=== PATIENT | male | born 1990 | race Caucasian/White ===

== ENCOUNTER 2020-03-19 23:27 | Emergency (ER) | payer SELFPAY ==
[2020-03-19 23:30] VITALS: BP 135/87; PULSE 102; RESP 20; TEMP 37.4; O2SAT 98; BMI 42.7
--- NOTE | 2020-03-19 23:31 | ECG_ITS ---
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 Measurements Intervals [place] Rate: 103 P: 46 HI: 133 QRS: 90 QRSD: 101 T: 55 QT: 331 QTc: 435 Interpretive Statements SINUS TACHYCARDIA ABNORMAL RHYTHM ECG Compared to ECG 03/09/2019 13:18:21 Sinus rhythm no longer present Incomplete right bundle-branch block no longer present Electronically Signed On 03-20-2020 19:58:51 CDT by Zenon Rodriguez M.D. [email or web address]
--- NOTE | 2020-03-19 23:31 | XRR_ITS ---
PROCEDURE INFORMATION: Exam: XR Chest, 1 View Exam date and time: 03/19/2020 11:39 PM Age: 29 years old Clinical indication: Fever and other: Chest pain; Patient HX: C/O cough/fever x 3 days; Additional info: Cp TECHNIQUE: Imaging protocol: XR of the chest Views: Frontal portable upright view of the chest. COMPARISON: CR Chest 2 views* [id number] 03/09/2019 12:51 AM FINDINGS: Lungs: The lungs are clear bilaterally. The pulmonary vasculature is normal. Pleural space: No pleural effusion. No pneumothorax. Heart/Mediastinum: The heart is normal in size and contour. Mediastinum: Stable. Bones/joints: Stable. XR/XR chest 1V portable [id number] IMPRESSION: No acute cardiopulmonary abnormality identified.
[2020-03-19 23:44] VITALS: BP 135/87; PULSE 101; RESP 18; O2SAT 99
[2020-03-19 23:46] LABS: Basophils % 0.7 %; Eosinophils # 0.8 10^3/uL (0.0-0.8); Eosinophils % 13.9 %; Hematocrit 44.7 % (42.0-52.0); Hemoglobin 14.9 g/dL (11.7-16.6); Lymphocytes # 0.6 10^3/uL (0.8-4.8); Lymphocytes % 9.9 %; Mean Corpuscular HGB Conc 33.3 g/dL (30.0-36.0); Mean Corpuscular Hemoglobin 30.2 pg (28.0-34.0); Mean Corpuscular Volume 90.5 fL (80-94); Mean Platelet Volume 9.6 fL (7.4-10.4); Monocytes # 0.4 10^3/uL (0.2-0.9); Monocytes % 6.9 %; Neutrophils # 3.8 10^3/uL (1.8-7.7); Neutrophils % 68.4 %; Nucleated Red Blood Cells % 0 %; Platelet Count 172 10^3/cmm (130-400); Red Blood Count 4.94 10^6/uL (4.1-5.3); Red Cell Distribution Width 11.6 % (12.1-15.1); White Blood Count 5.5 10^3/uL (4.0-10.0)
--- NOTE | 2020-03-19 23:50 | ED_ITS ---
Documented by User: CARMEN Osorio 03/19/20 23:52 HPI - Chest Pain General: Chief Complaint: Chest Pain Stated Complaint: CHEST PAIN Time Seen by Provider: 03/19/20 23:31 History of Present Illness: HPI narrative: Patient arrives via ambulance with complaint of chest pain cough had a fever he said last couple 3 days off and on. Is anxious. Does he is got heartburn MD complaint: chest discomfort Onset (ago): day(s) Timing of current episode: episodic Prior episodes: No Onset: after eating Pain location: substernal Quality: burning Associated symptoms: Reports fever(s); Deny abdominal pain, dyspnea, nausea or vomiting Review of Systems Const: Reports: fever(s) Eyes: Denies: change in vision or blurry vision ENMT: Denies: throat pain or nasal congestion Card: Reports: chest pain; Denies: dyspnea on exertion Resp: Reports: non-productive cough; Denies: dyspnea or productive cough GI: Reports: heartburn; Denies: abdominal pain, nausea or vomiting : Denies: difficulty urinating Musc: Denies: extremity pain Skin/Breast: Denies: rash Neuro: Denies: headache(s) Psych: Denies: anxiety or depression Dusty/Lymph: Denies: easy bruising Physical Exam Const: COMMON NORMALS: no acute distress, average body habitus and patient oriented x3 HENMT: COMMON NORMALS: normocephalic HEAD & SCALP: normal to inspection and normocephalic FACE & SINUS: normal facial exam Eye: COMMON NORMALS: conjunctivae normal GENERAL EYE: appearance normal, both eyes and all related structures CONJUNCTIVA: Yes conjunctivae normal Neck/C-Spine: COMMON NORMALS: no JVD Chest: COMMONS NORMALS: normal inspection of the chest Resp: COMMON NORMALS: normal respiratory effort and clear to auscultation bilaterally AUSCULTATION: clear to auscultation bilaterally Cardio: COMMON NORMALS: no JVD, regular rate and regular rhythm RATE: regular rate RHYTHM: regular rhythm GI: COMMON NORMALS: Normal to inspection, nondistended, normoactive bowel sounds present Extremity: COMMON NORMALS: normal to inspection and full ROM Neuro: COMMON NORMALS: patient oriented x3 Skin: NARRATIVE SKIN EXAM: Diaphoretic Course Vital Signs: Vital signs: Vital Signs Temperature 99.4 F 03/19/20 23:30 Pulse Rate 83 07/05/20 03:46 Respiratory Rate 18 03/20/20 03:46 Blood Pressure 128/66 03/20/20 03:46 Pulse Oximetry 96 03/20/20 03:46 MDM - Chest Pain Lab Data: Labs: Lab Results 03/19/20 03/19/20 03/19/20 Range/Units 23:40 23:40 23:40 WBC 5.5 (4.0-10.0) 10^3/ uL RBC 4.94 (4.1-5.3) 10^6/u L Hgb 14.9 (11.7-16.6) g/dL Hct 44.7 (42.0-52.0) % MCV 90.5 (80-94) fL MCH 30.2 (28.0-34.0) pg MCHC 33.3 (30.0-36.0) g/dL RDW 11.6 L (12.1-15.1) % Plt Count 172 (130-400) 10^3/c mm MPV 9.6 (7.4-10.4) fL Neut % (Auto) 68.4 % Lymph % (Auto) 9.9 % [place] % (Auto) 6.9 % Eos % (Auto) 13.9 % Baso % (Auto) 0.7 % Neut # (Auto) 3.8 (1.8-7.7) 10^3/u L Lymph # (Auto) 0.6 L (0.8-4.8) 10^3/u L [place] # (Auto) 0.4 (0.2-0.9) 10^3/u L Eos # (Auto) 0.8 (0.0-0.8) 10^3/u L Baso # (Auto) 0.0 (0.0-0.1) 10^3/u L Nucleated RBC % (a uto) 0 % Nucleated RBCs # 0.0 /100WBC D-Dimer 3.01 H (0-0.59) ug/mIFE U Sodium 136 (136-145) mmol/L Potassium 3.7 (3.5-5.1) mmol/L Chloride 100 (98-107) mmol/L Carbon Dioxide 23 (22-29) mmol/L Anion Gap 16.7 (5-19) BUN 11 (6-20) mg/dL Creatinine 1.1 (0.7-1.2) mg/dL GFR Calculation 78.6 L (90-130) mL/min Glucose 201 H (65-115) mg/dL Calculated Osmolal ity 284 L (285-295) mOsm/k g Calcium 9.3 (8.5-10.5) mg/dL Total Bilirubin 0.9 (0.15-1.2) mg/dL AST 527 H (0-40) U/L ALT 669 H (0-41) U/L Alkaline Phosphata se 83 (40-130) IU/L Troponin T Baselin e (0-15) ng/L Troponin T 120 Min [place] (0-15) ng/L Delta Troponin T (0-10) ABS# Total Protein 7.0 (6.6-8.7) g/dL Albumin 3.7 (3.5-5.2) g/dL Globulin 3.3 (1.3-4.6) g/dL Hepatitis A IgM Ab (Nonreactive) Hep Bs Antigen (Nonreactive) Hep B Core IgM Ab (Nonreactive) Hepatitis C Antibo dy (Nonreactive) 03/19/20 03/19/20 03/20/20 Range/Units 23:40 23:40 02:12 WBC (4.0-10.0) 10^3/ uL RBC (4.1-5.3) 10^6/u L Hgb (11.7-16.6) g/dL Hct (42.0-52.0) % MCV (80-94) fL MCH (28.0-34.0) pg MCHC (30.0-36.0) g/dL RDW (12.1-15.1) % Plt Count (130-400) 10^3/c mm MPV (7.4-10.4) fL Neut % (Auto) % Lymph % (Auto) % [place] % (Auto) % Eos % (Auto) % Baso % (Auto) % Neut # (Auto) (1.8-7.7) 10^3/u L Lymph # (Auto) (0.8-4.8) 10^3/u L [place] # (Auto) (0.2-0.9) 10^3/u L Eos # (Auto) (0.0-0.8) 10^3/u L Baso # (Auto) (0.0-0.1) 10^3/u L Nucleated RBC % (a uto) % Nucleated RBCs # /100WBC D-Dimer (0-0.59) ug/mIFE U Sodium (136-145) mmol/L Potassium (3.5-5.1) mmol/L Chloride (98-107) mmol/L Carbon Dioxide (22-29) mmol/L Anion Gap (5-19) BUN (6-20) mg/dL Creatinine (0.7-1.2) mg/dL GFR Calculation (90-130) mL/min Glucose (65-115) mg/dL Calculated Osmolal ity (285-295) mOsm/k g Calcium (8.5-10.5) mg/dL Total Bilirubin (0.15-1.2) mg/dL AST (0-40) U/L ALT (0-41) U/L Alkaline Phosphata se (40-130) IU/L Troponin T Baselin e 6 (0-15) ng/L Troponin T 120 Min [place] 6.00 (0-15) ng/L Delta Troponin T 0 (0-10) ABS# Total Protein (6.6-8.7) g/dL Albumin (3.5-5.2) g/dL Globulin (1.3-4.6) g/dL Hepatitis A IgM Ab Non-reactive (Nonreactive) Hep Bs Antigen Non-reactive (Nonreactive) Hep B Core IgM Ab Non-reactive (Nonreactive) Hepatitis C Antibo dy Reactive H (Nonreactive) EKG Data^: EKG 1: EKG interpretation date: 03/19/20 EKG interpretation time: 23:52 Interpretation: Sinus tachycardia rate of 103 bpm [place] interval 133 ms QRS duration 101 ms Discharge Plan Discharge Patient Disposition: Home, Self-Care Clinical Impression: Abdominal pain, acute, epigastric, Elevated transaminase level Condition: Stable Prescriptions: New Prevacid 30 mg capsule,delayed release(DR/EC) 30 mg PO DAILY Qty: 30 RF: 0 Zofran 4 mg tablet 4 mg PO Q6H PRN (Reason: nausea and vomiting) Qty: 10 RF: 0 Discharge Orders: Discharge Order (Routine); Ordered 07/05/20 Ordered By: Jeff Mao Referrals: Tawana Hodges, CARMEN-C [Primary Care Provider] - 4-7 days Discharge Diet: Advance as tolerated and Clear Liquid Discharge Activity: Increase activity as tolerated Patient Instructions: Abdominal Pain (ED) Activity Restrictions/Additional Instructions: Your liver enzymes were mildly elevated. These may need to be repeated in 1 to 2 weeks. Do not take Tylenol/acetaminophen for the next 48 hours. You may use ibuprofen to treat your temperatures. Return for continued temperatures greater than 100, vomiting liquids or medications despite treatment, worsening pain despite treatment, other concerning symptoms. Other medications as directed. Discharge Date/Time: 03/20/20 03:53 Coding Level of Care Code ED Property Analyst for Chg Fwd Exam Comprehensive Documented by User: Jeff Mao DO 03/20/20 04:10 HPI - Chest Pain General: Chief Complaint: Chest Pain Stated Complaint: CHEST PAIN Time Seen by Provider: 03/19/20 23:31 Course Vital Signs: Vital signs: Vital Signs Temperature 99.4 F 03/19/20 23:30 Pulse Rate 83 03/20/20 03:46 Respiratory Rate 18 03/20/20 03:46 Blood Pressure 128/66 03/20/20 03:46 Pulse Oximetry 96 03/20/20 03:46 MDM - Chest Pain MDM Narrative: Medical decision making narrative: 29-year-old male checked out to me by CARMEN Mckenzie. Patient presents essentially with epigastric pain. EKGs were not remarkable for ischemia. Troponin did not change at 2 hours and remained normal. Patient does not have a gallbladder. He had an elevated d-d benedict. CTA of the chest is negative. CT of the belly showed no dilated bile ducts. No evidence for acute abdominal disease. It seems that GI cocktail helped his pain to some degree. His laboratory is remarkable for elevations in his transaminases, without elevation in his bilirubin. Hepatitis panel is negative for hepatitis A and B acutely. His white blood cell count is only 5.5. His platelet count is mildly low. He has no history of a tick bite. He will be treated symptomatically told to return for worsening symptoms. Lab Data: Labs: Lab Results 03/19/20 03/19/20 03/19/20 Range/Units 23:40 23:40 23:40 WBC 5.5 (4.0-10.0) 10^3/ uL RBC 4.94 (4.1-5.3) 10^6/u L Hgb 14.9 (11.7-16.6) g/dL Hct 44.7 (42.0-52.0) % MCV 90.5 (80-94) fL MCH 30.2 (28.0-34.0) pg MCHC 33.3 (30.0-36.0) g/dL RDW 11.6 L (12.1-15.1) % Plt Count 172 (130-400) 10^3/c mm MPV 9.6 (7.4-10.4) fL Neut % (Auto) 68.4 % Lymph % (Auto) 9.9 % [place] % (Auto) 6.9 % Eos % (Auto) 13.9 % Baso % (Auto) 0.7 % Neut # (Auto) 3.8 (1.8-7.7) 10^3/u L Lymph # (Auto) 0.6 L (0.8-4.8) 10^3/u L [place] # (Auto) 0.4 (0.2-0.9) 10^3/u L Eos # (Auto) 0.8 (0.0-0.8) 10^3/u L Baso # (Auto) 0.0 (0.0-0.1) 10^3/u L Nucleated RBC % (a uto) 0 % Nucleated RBCs # 0.0 /100WBC D-Dimer 3.01 H (0-0.59) ug/mIFE U Sodium 136 (136-145) mmol/L Potassium 3.7 (3.5-5.1) mmol/L Chloride 100 (98-107) mmol/L Carbon Dioxide 23 (22-29) mmol/L Anion Gap 16.7 (5-19) BUN 11 (6-20) mg/dL Creatinine 1.1 (0.7-1.2) mg/dL GFR Calculation 78.6 L (90-130) mL/min Glucose 201 H (65-115) mg/dL Calculated Osmolal ity 284 L (285-295) mOsm/k g Calcium 9.3 (8.5-10.5) mg/dL Total Bilirubin 0.9 (0.15-1.2) mg/dL AST 527 H (0-40) U/L ALT 669 H (0-41) U/L Alkaline Phosphata se 83 (40-130) IU/L Troponin T Baselin e (0-15) ng/L Troponin T 120 Min [place] (0-15) ng/L Delta Troponin T (0-10) ABS# Total Protein 7.0 (6.6-8.7) g/dL Albumin 3.7 (3.5-5.2) g/dL Globulin 3.3 (1.3-4.6) g/dL Hepatitis A IgM Ab (Nonreactive) Hep Bs Antigen (Nonreactive) Hep B Core IgM Ab (Nonreactive) Hepatitis C Antibo dy (Nonreactive) 03/19/20 03/19/20 03/20/20 Range/Units 23:40 23:40 02:12 WBC (4.0-10.0) 10^3/ uL RBC (4.1-5.3) 10^6/u L Hgb (11.7-16.6) g/dL Hct (42.0-52.0) % MCV (80-94) fL MCH (28.0-34.0) pg MCHC (30.0-36.0) g/dL RDW (12.1-15.1) % Plt Count (130-400) 10^3/c mm MPV (7.4-10.4) fL Neut % (Auto) % Lymph % (Auto) % [place] % (Auto) % Eos % (Auto) % Baso % (Auto) % Neut # (Auto) (1.8-7.7) 10^3/u L Lymph # (Auto) (0.8-4.8) 10^3/u L [place] # (Auto) (0.2-0.9) 10^3/u L Eos # (Auto) (0.0-0.8) 10^3/u L Baso # (Auto) (0.0-0.1) 10^3/u L Nucleated RBC % (a uto) % Nucleated RBCs # /100WBC D-Dimer (0-0.59) ug/mIFE U Sodium (136-145) mmol/L Potassium (3.5-5.1) mmol/L Chloride (98-107) mmol/L Carbon Dioxide (22-29) mmol/L Anion Gap (5-19) BUN (6-20) mg/dL Creatinine (0.7-1.2) mg/dL GFR Calculation (90-130) mL/min Glucose (65-115) mg/dL Calculated Osmolal ity (285-295) mOsm/k g Calcium (8.5-10.5) mg/dL Total Bilirubin (0.15-1.2) mg/dL AST (0-40) U/L ALT (0-41) U/L Alkaline Phosphata se (40-130) IU/L Troponin T Baselin e 6 (0-15) ng/L Troponin T 120 Min [place] 6.00 (0-15) ng/L Delta Troponin T 0 (0-10) ABS# Total Protein (6.6-8.7) g/dL Albumin (3.5-5.2) g/dL Globulin (1.3-4.6) g/dL Hepatitis A IgM Ab Non-reactive (Nonreactive) Hep Bs Antigen Non-reactive (Nonreactive) Hep B Core IgM Ab Non-reactive (Nonreactive) Hepatitis C Antibo dy Reactive H (Nonreactive) Discharge Plan Discharge Patient Disposition: Home, Self-Care Clinical Impression: Abdominal pain, acute, epigastric, Elevated transaminase level Condition: Stable Prescriptions: New Prevacid 30 mg capsule,delayed release(DR/EC) 30 mg PO DAILY Qty: 30 RF: 0 Zofran 4 mg tablet 4 mg PO Q6H PRN (Reason: nausea and vomiting) Qty: 10 RF: 0 Discharge Orders: Discharge Order (Routine); Ordered 03/20/20 Ordered By: Jeff Mao Referrals: Tawana Hodges, INCOME TAX EXPERT-C [Primary Care Provider] - 4-7 days Discharge Diet: Advance as tolerated and Clear Liquid Discharge Activity: Increase activity as tolerated Patient Instructions: Abdominal Pain (ED) Activity Restrictions/Additional Instructions: Your liver enzymes were mildly elevated. These may need to be repeated in 1 to 2 weeks. Do not take Tylenol/acetaminophen for the next 48 hours. You may use ibuprofen to treat your temperatures. Return for continued temperatures greater than 100, vomiting liquids or medications despite treatment, worsening pain d espite treatment, other concerning symptoms. Other medications as directed. Discharge Date/Time: 03/20/20 03:53 Coding Level of Care Code ED Property Analyst for Johnnie Fwd Exam Comprehensive
[2020-03-19 23:57] LABS: D Dimer 3.01 ug/mIFEU (0-0.59)
[2020-03-20] VITALS (8 sets, daily range): BP systolic 111–148; BP diastolic 66–96; PULSE 72–83; RESP 16–24; O2SAT 94–96
[2020-03-20] LABS: Alanine Aminotransferase 669 U/L (0-41); Albumin Level 3.7 g/dL (3.5-5.2); Alkaline Phosphatase 83 IU/L (40-130); Anion Gap 16.7 (5-19); Aspartate Amino Transferase 527 U/L (0-40); Blood Urea Nitrogen 11 mg/dL (6-20); Calcium 9.3 mg/dL (8.5-10.5); Carbon Dioxide 23 mmol/L (22-29); Chloride 100 mmol/L (98-107); Globulin 3.3 g/dL (1.3-4.6); Glomerular Filtration Rate 78.6 mL/min (90-130); Glucose 201 mg/dL (65-115); Osmolality Calculated 284 mOsm/kg (285-295); Potassium 3.7 mmol/L (3.5-5.1); Sodium 136 mmol/L (136-145); Total Bilirubin 0.9 mg/dL (0.15-1.2)
--- NOTE | 2020-03-20 00:34 | CTR_ITS ---
PROCEDURE INFORMATION: Exam: CT Angiography Chest With Contrast Exam date and time: 03/20/2020 12:52 AM Age: 29 years old Clinical indication: Nausea; Shortness of breath; Additional info: Chest pain, elvated amniotranferases and d-dimer, SOB TECHNIQUE: Imaging protocol: Computed tomographic angiography of the chest with intravenous contrast. 3D rendering: MIP and/or 3D reconstructed images were created by the technologist. Radiation optimization: All CT scans at this facility use at least one of these dose optimization techniques: automated exposure control; mA and/or kV adjustment per patient size (includes targeted exams where dose is matched to clinical indication); or iterative reconstruction. Contrast material: OMNI 350; Contrast volume: 95 ml; Contrast route: INTRAVENOUS (IV); COMPARISON: CR XR chest 1V portable [id number] 03/19/2020 11:30 PM RADIATION DOSE METRICS: Total DLP (mGy-cm): 2808.63 FINDINGS: Pulmonary arteries: The pulmonary arteries are adequately opacified for evaluation to the subsegmental level. There is no filling defect to suggest embolism. Aorta: The thoracic aorta is normal. There is no aneurysm or dissection. Lungs: Lungs are clear. Pleural space: There is no pleural effusion or pneumothorax. Heart: The heart is unremarkable. There is no pericardial effusion. Lymph nodes: There is no mediastinal or hilar lymphadenopathy. Bones/joints: Bones are unremarkable. Soft tissues: The extrathoracic soft tissues are unremarkable. IMPRESSION: No pulmonary embolism. PROCEDURE INFORMATION: Exam: CT Abdomen And Pelvis With Contrast Exam date and time: 03/20/2020 12:52 AM Age: 29 years old Clinical indication: Nausea; Shortness of breath; Additional info: Chest pain, elvated amniotranferases and d-dimer, SOB TECHNIQUE: Imaging protocol: Computed tomography of the abdomen and pelvis with intravenous contrast. Radiation optimization: All CT scans at this facility use at least one of these dose optimization techniques: automated exposure control; mA and/or kV adjustment per patient size (includes targeted exams where dose is matched to clinical indication); or iterative reconstruction. Contrast material: OMNI 350; Contrast volume: 95 ml; Contrast route: INTRAVENOUS (IV); COMPARISON: CR XR chest 1V portable [id number] 03/19/2020 11:30 PM RADIATION DOSE METRICS: Total DLP (mGy-cm): 2808.63 FINDINGS: Lungs: Lung bases are clear. Liver: There is subtle central periportal edema. The liver is otherwise normal. Gallbladder and bile ducts: The gallbladder is absent. There is no intrahepatic or extrahepatic bile duct dilation. Pancreas: The pancreas is unremarkable. Spleen: The spleen is moderately enlarged. Adrenals: The adrenal glands are unremarkable. Kidneys and ureters: Marked asymmetric atrophy of the left kidney. The right kidney and ureter are unremarkable. Stomach and bowel: The stomach is unremarkable. The small bowel is nondilated. The colon is unremarkable. Appendix: The appendix is normal. Intraperitoneal space: There is mild fat stranding in the gianfranco hepatis. There is no free air or significant intraperitoneal free fluid. Vasculature: The portal, splenic and superior mesenteric veins are patent. The abdominal aorta is normal. There is no aneurysm or dissection. Lymph nodes: There are multiple mildly enlarged lymph nodes in the gianfranco hepatis. No retroperitoneal, mesenteric, pelvic or inguinal lymphadenopathy. Bladder: Unremarkable as visualized. Reproductive: Unremarkable as visualized. Bones/joints: Moderate lower lumbar degenerative disc disease. The pelvis and hips are intact. Soft tissues: The abdominal wall is intact. CT/CT angio chest w abd pel w con IMPRESSION: 1. Mild gianfranco hepatis edema and lymph node enlargement with subtle central periportal edema. Possible acute viral hepatitis or cholangitis. 2. Moderate splenic enlargement. 3. Marked atrophy of the left kidney. Radiation Dose CTDIVOL = (mGy): DLP = 2808.63~2808.63 (mGy-cm)
[2020-03-20] MEDS: lidocaine 2% viscous 15 ML, aluminum-mag hydrox-simethicon 30 ML, sucralfate oral liq 1 GM PO (00:42)
[2020-03-20 00:45] LABS: Troponin(5th) Baseline 6 ng/L (0-15)
[2020-03-20] MEDS: iohexol 350 mg/mL 100 mL Btl IV (01:36)
[2020-03-20] MEDS: ondansetron 2 mg/ML SDV 2 mL 4 MG IVP (01:44)
[2020-03-20] MEDS: morphine 4 mg/mL SDV 1 mL IVP (01:44)
[2020-03-20 02:47] LABS: Troponin 5 2HR Delta 0 ABS# (0-10)
[2020-03-20 03:03] LABS: Hepatitis A Antibody IgM Non-Reactive (Nonreactive); Hepatitis B Core IgM Non-Reactive (Nonreactive); Hepatitis B Surface Antigen Non-Reactive (Nonreactive)
[2020-03-20 03:35] LABS: Hepatitis C Virus Antibody Reactive (Nonreactive)
== END 2020-03-20 03:53 | disposition home or self-care (01) ==
PROVIDERS: Nurse Practitioner Family; Emergency Provider Emergency Medicine; PCP Nurse Practitioner
DX: R10.13 Epigastric pain (principal); R74.0 Nonspecific elevation of levels of transaminase and lactic acid dehydrogenase [LDH]
CPT/HCPCS: 12345; 71045; 71275; 74177; 80053; 80074; 84484; 85025; 85378; 93005; 96374; 96375; 99283; 99284; J2270; J2405; Q9967

== ENCOUNTER 2021-05-01 16:36 | Emergency (ER) | payer SELFPAY ==
[2021-05-01 16:43] VITALS: BP 136/103; PULSE 106; RESP 16; TEMP 36.6; O2SAT 97; BMI 45.8
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
[2021-05-01 17:05] VITALS: BP 135/104; PULSE 105; RESP 14; O2SAT 96
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
[2021-05-01 18:01] LABS: Basophils # 0.1 10^3/uL (0.0-0.1); Basophils % 0.6 %; Eosinophils # 0.1 10^3/uL (0.0-0.8); Eosinophils % 0.7 %; Hematocrit 48.1 % (42.0-52.0); Hemoglobin 16.1 g/dL (11.7-16.6); Lymphocytes # 3.6 10^3/uL (0.8-4.8); Lymphocytes % 36.1 %; Mean Corpuscular HGB Conc 33.5 g/dL (30.0-36.0); Mean Corpuscular Hemoglobin 30.6 pg (28.0-34.0); Mean Corpuscular Volume 91.3 fl (80-94); Mean Platelet Volume 9.4 fL (7.4-10.4); Monocytes # 0.7 10^3/uL (0.2-0.9); Monocytes % 6.9 %; Neutrophils # 5.58 10^3/uL (1.8-7.7); Neutrophils % 55.5 %; Nucleated Red Blood Cells % 0 %; Platelet Count 286 10^3/cmm (130-400); Red Blood Count 5.27 10^6/uL (4.1-5.3)
[2021-05-01 18:22] LABS: Alanine Aminotransferase 55 U/L (0-41); Albumin Level 4.5 g/dL (3.5-5.2); Alkaline Phosphatase 75 IU/L (40-130); Anion Gap 14.1 (5-19); Aspartate Amino Transferase 33 U/L (0-40); Blood Urea Nitrogen 11 mg/dL (6-20); Calcium 9.3 mg/dL (8.5-10.5); Carbon Dioxide 27 mmol/L (22-29); Chloride 105 mmol/L (98-107); Globulin 3.1 g/dL (1.3-4.6); Glomerular Filtration Rate 86.6 mL/min (90-130); Glucose 98 mg/dL (65-115); Osmolality Calculated 293 mOsm/kg (285-295); Potassium 4.1 mmol/L (3.5-5.1); Sodium 142 mmol/L (136-145); Total Bilirubin 0.3 mg/dL (0.15-1.2); Total Protein 7.6 g/dL (6.6-8.7)
[2021-05-01 18:38] VITALS: BP 139/102; PULSE 87; RESP 16; O2SAT 98
== END 2021-05-01 18:35 | disposition home or self-care (01) ==
PROVIDERS: Family Medicine; Emergency Provider Emergency Medicine; PCP Nurse Practitioner
DX: S43.402A Unspecified sprain of left shoulder joint, initial encounter (principal); V89.2XXA Person injured in unspecified motor-vehicle accident, traffic, initial encounter
CPT/HCPCS: 71045; 72040; 73030; 73610; 80053; 85025; 99283

== ENCOUNTER 2021-09-01 15:57 | Emergency (ER) | payer MEDICAID, SELFPAY ==
[2021-09-01 16:22] VITALS: BP 170/120; PULSE 84; RESP 16; TEMP 36.9
--- NOTE | 2021-09-01 16:28 | ED_ITS ---
HPI - Dental/Oral General: Chief complaint: Dental/Oral Stated complaint: R ABSCESS TOOTH Time Seen by Provider: 09/01/21 16:26 History of Present Illness: HPI Narrative: Patient is a 31-year-old male comes to the ED with dental pain. Symptoms have been going on for the past 3 days. Dental pain located around tooth #30 and 29 and he has associated right mandible swelling as well. He rates the pain a 10 out of 10. Associated symptoms: Denies fever(s) or odynophagia Review of Systems Const: Denies: fever(s), chills or fatigue Eyes: Denies: change in vision or eye discomfort ENMT: Reports: dental pain; Denies: throat pain, odynophagia, nasal discharge or nasal congestion Card: Denies: chest pain, palpitations, edema, swelling of feet/ankles, dyspnea on exertion or orthopnea Resp: Denies: dyspnea, productive cough or non-productive cough GI: Denies: abdominal pain, nausea, vomiting, diarrhea, constipation or hematochezia : Denies: flank pain, difficulty urinating, dysuria or hematuria Musc: Denies: neck pain, back pain or extremity swelling Skin/Breast: Denies: rash or new lesions Neuro: Denies: headache(s), numbness in extremities or weakness in extremities Physical Exam Const: COMMON NORMALS: patient oriented x3, healthy appearing and alert GEN ERAL APPEARANCE: cooperative and comfortable HENMT: COMMON NORMALS: normocephalic HEAD & SCALP: normocephalic MOUTH: Normal oral and palatal mucosa present TEETH & GINGIVA: Yes abnormal tooth and associated gingiva lower right first bicuspid tender and with associated gingival edema and Yes poor dentition THROAT: posterior oropharynx normal and uvula midline Neck/C-Spine: COMMON NORMALS: supple GENERAL: Yes normal visual inspection Resp: COMMON NORMALS: normal respiratory effort, No retractions, No use of accessory muscles and clear to auscultation bilaterally AUSCULTATION: clear to auscultation bilaterally Cardio: COMMON NORMALS: regular rate, regular rhythm, S1 normal heart sound present, S2 normal heart sound present, No gallops present (Cardio), No clicks present (Cardio), No murmurs present (Cardio) and Peripheral pulses 2+ throughout RATE: regular rate RHYTHM: regular rhythm HEART SOUNDS: S1 normal heart sound present and S2 normal heart sound present PERIPHERAL PULSES: Peripheral pulses 2+ throughout GI: COMMON NORMALS: Normal to inspection, nondistended, normoactive bowel sounds present, Soft to palpation, non-tender and no masses PALPATION: Yes Soft to palpation : COMMON NORMALS: Yes no CVA tenderness BLADDER/KIDNEY EXAM: Yes no CVA tenderness Back/Pelvis: COMMON NORMALS: no CVA tenderness Extremity: COMMON NORMALS: normal to inspection Neuro: COMMON NORMALS: patient oriented x3 and moves all extremities SENSORIUM/ORIENTATION: Yes alert Skin: GENERAL SKIN EXAM: dry skin Course Vital Signs: Vital signs: Vital Signs Temperature 98.4 F 09/01/21 16:22 Pulse Rate 84 09/01/21 16:22 Respiratory Rate 16 09/01/21 16:48 Blood Pressure 170/120 09/01/21 16:22 MDM - Dental/Oral MDM Narrative: Medical decision making narrative: Patient is a 31-year-old male comes in the ED with dental pain. He has some right mandible swelling as well. Patient has poor dentition with dental decay in multiple teeth in the right lower jaw. Patient was given some hydrocodone here in the ED for pain and given a dose of clindamycin. He was told to contact dentist for follow-up and further evaluation of dental pain. He was discharged home with a prescription for a few hydrocodone for acute pain and clindamycin. Return to ED precautions given. Patient stood agree with plan. Discharge Plan Discharge Patient Disposition: Home Clinical Impression: Pain due to dental caries Condition: Stable Prescriptions: New clindamycin HCl 150 mg capsule 300 mg PO QID 7 Days Qty: 56 RF: 0 Celebrex 100 mg capsule 100 mg PO BID PRN (Reason: pain) Qty: 20 RF: 0 No Action methocarbamol 750 mg tablet 750 mg PO Q6H PRN (Reason: spasms) Qty: 20 RF: 0 Naprosyn 500 mg tablet 500 mg PO BID PRN (Reason: pain) Qty: 20 RF: 0 Discharge Orders: Discharge ED (Routine); Ordered 09/01/21 Ordered By: Sabino Lim Referrals: Tawana Hodges [id number] [Primary Care Provider] - Discharge Diet: Regular Discharge Activity: Resume usual activity Patient Instructions: Dental Caries (Cavities), Dental Abscess (ED), Opioid Safety Activity Restrictions/Additional Instructions: Contact dentist and get appointment set up with them for definitive treatment of dental pain. Take medications as prescribed. Return to the ER or your medical provider if condition worsens. Please read and understand discharge instructions. Thank you for choosing [facility] for your healthcare needs today. Please realize this is an emergency room and that we are providing you with a medical screening exam and this may not be complete and all inclusive of all the testing and or work up that you may need to determine your ailment or severity of your illness. It is very important that you follow up as instructed or that you return to the Emergency Department should you have concerns or if your condition changes or worsens in any way. Coding Level of Care Code ED Toaster Element Repairer for Johnnie Fwd Exam Comprehensive
[2021-09-01 16:48] VITALS: RESP 16
[2021-09-01] MEDS: oxyCODONE-APAP 5-325 mg Tablet 1 TAB PO (16:48)
[2021-09-01] MEDS: clindamycin 150 mg Capsule 300 MG PO (16:48)
== END 2021-09-01 17:30 | disposition home or self-care (01) ==
PROVIDERS: Emergency Provider Physician Assistant; PCP Nurse Practitioner
DX: K02.9 Dental caries, unspecified (principal); M26.69 Other specified disorders of temporomandibular joint
CPT/HCPCS: 99283

== ENCOUNTER 2022-04-28 14:42 | Emergency (ER) | payer MEDICAID, SELFPAY ==
[2022-04-28 14:54] VITALS: BP 146/91; PULSE 91; RESP 16; TEMP 36.9; O2SAT 99
--- NOTE | 2022-04-28 15:02 | USR_ITS ---
PROCEDURE INFORMATION: Exam: US Soft Tissue Head and Neck, Soft Tissue Exam date and time: 04/28/2022 4:05 PM Age: 32 years old Clinical indication: Neck pain; Additional info: Abscess TECHNIQUE: Imaging protocol: Real-time ultrasound scan of the head and neck with image documentation. Exam focused on the soft tissue in the region of clinical concern. COMPARISON: CT head wo con* [id number] 03/09/2019 1:56 AM FINDINGS: Lymph nodes: No lymphadenopathy. Soft tissues: There is a low-density lesion in the subcutaneous soft tissues of the posterior left neck measuring 1.9 x 1.7 x 4.1 mm. There is no vascularity within this lesion. US/US soft tissue head neck [id number] IMPRESSION: There is a low-density avascular lesion in the subcutaneous soft tissues of the posterior left neck. This is nonspecific, abscess and hematoma are in the differential.
--- NOTE | 2022-04-28 15:07 | W.ED.WOUNDLC ---
HPI - Wound/Laceration General: Chief Complaint: Wound/Laceration Stated Complaint: Spider bite, pain in neck Time Seen by Provider: 04/28/22 14:55 History of Present Illness: 32-year-old male patient comes in today with complaints of headache and abscess to the neck. Patient has a sore to the posterior neck on the left side. No significant swelling is noted. There is some surrounding redness and induration to the wound site. Associated symptoms: Denies fever(s) Review of Systems General: Reports: 10 or more systems reviewed and unremarkable except in HPI and below Const: Denies: fever(s) Skin/Breast: Reports: new lesions Neuro: Reports: headache(s) PFS ED PFSH: Medical History (Updated 04/28/22 @ 15:06 by CARMEN Gonzalez) Psychiatric care Social History (Updated 11/21/21 @ 13:50 by Buddy Head LPN) Smoking and tobacco status: current every day smoker cigarettes Packs smoked per day: 0.25 Years cigarettes smoked: 20 Quit status (tobacco): has tried quititng Number of times tried to quit tobacco: 5 Second hand smoke exposure: No Physical Exam Const: COMMON NORMALS: alert HENMT: COMMON NORMALS: normocephalic HEAD & SCALP: normocephalic MOUTH: Normal oral and palatal mucosa present Neck/C-Spine: COMMON NORMALS: full ROM and supple OTHER: 3 cm of erythema surrounding a crusted lesion. No fluctuance or swelling is noted. Resp: COMMON NORMALS: normal respiratory effort and clear to auscultation bilaterally AUSCULTATION: clear to auscultation bilaterally Cardio: COMMON NORMALS: regular rate and regular rhythm RATE: regular rate RHYTHM: regular rhythm Back/Pelvis: COMMON NORMALS: thoracic and lumbar spine normal to inspection Extremity: COMMON NORMALS: normal to inspection Neuro: SENSORIUM/ORIENTATION: Yes alert Skin: LESIONS: lesion noted (Posterior left neck, erythema 3 cm surrounding a crusted lesion) Course Vital Signs: Vital signs: Vital Signs Temperature 98.5 F 04/28/22 15:11 Pulse Rate 91 04/28/22 15:11 Respiratory Rate 16 04/28/22 15:11 Blood Pressure 146/91 04/28/22 15:11 Pulse Oximetry 99 04/28/22 15:11 Oxygen Delivery Me thod 04/28/22 15:11 MDM - Wound/Laceration Medical Decision Making 42-year-old male patient comes in today for complaints of a sore lesion to his neck. On exam there is a crusted lesion with 3 cm surrounding redness and induration to the posterior left neck at the hairline. No fluctuance is noted. Differential diagnosis includes abscess, cellulitis, folliculitis. Patient has a history of MRSA. Patient was given 1 dose of Augmentin and 1 dose of Bactrim. Patient was also given mupirocin ointment to cover over the lesion twice a day. Patient will be continued on the Bactrim twice a day for 7 days. Ultrasound of the area indicated no significant fluid collection needing drainage. Discharge Plan Discharge Patient Disposition: Home Clinical Impression: Carbuncle and furuncle of neck Condition: Stable Prescriptions: New Bactrim DS 800-160 mg tablet 1 tab PO DAILY 7 Days Qty: 14 0RF hydrocodone-acetaminophen 5-325 mg tablet 1 tab PO Q8H PRN (Reason: pain (scale score 7-10)) Qty: 6 0RF ibuprofen 800 mg tablet 800 mg PO Q8H PRN (Reason: pain) Qty: 20 0RF No Action bupropion HCl [Wellbutrin XL] 150 mg tablet extended release 24 hr 150 mg PO QAM Qty: 30 2RF buspirone 10 mg tablet 10 mg PO TID Qty: 90 2RF quetiapine [Seroquel] 100 mg tablet 100 mg PO .HS Qty: 30 2RF Naprosyn 500 mg tablet 500 mg PO BID PRN (Reason: pain) Qty: 20 0RF Discharge Orders: Discharge ED (Routine); Ordered 04/28/22 Ordered By: Delvis Adams Referrals: Tawana Hodges, NEGRAC [Primary Care Provider] - Discharge Diet: Usual diet Discharge Activity: Increase activity as tolerated Patient Instructions: Abscess (ED) Activity Restrictions/Additional Instructions: Use warm compresses to the neck. Apply antibiotic open to the lesion 2 times a day until healed. Take antibiotics twice a day for the next 7 days. Drink plenty of water with antibiotic by mouth. Follow-up with primary care for further instruction. Return to ED for new concerns. Coding Level of Care Code ED Loader Magazine Grinder for Johnnie Fwshar Exam Comprehensive
[2022-04-28 15:11] VITALS: BP 146/91; PULSE 91; RESP 16; TEMP 36.9; O2SAT 99
[2022-04-28] MEDS: sulfamethoxazole-trimeth DS 160-800 mg Tablet 1 TAB PO (15:21)
[2022-04-28] MEDS: amoxicillin-clav 875-125 mg Tablet 1 TAB PO (15:21)
[2022-04-28] MEDS: mupirocin oint 22 gm 1 APPLIC TOPICAL (15:21)
[2022-04-28] MEDS: ketorolac 30 mg/mL INJ IM (15:22)
== END 2022-04-28 16:29 | disposition home or self-care (01) ==
PROVIDERS: Emergency Provider Nurse Practitioner Family; PCP Nurse Practitioner
DX: L02.13 Carbuncle of neck (principal); F17.210 Nicotine dependence, cigarettes, uncomplicated
CPT/HCPCS: 76536; 96372; 99284; J1885

== ENCOUNTER 2022-09-02 22:24 | Emergency (ER) | payer MEDICAID, SELFPAY ==
[2022-09-02 22:26] VITALS: BP 151/84; PULSE 84; RESP 17; TEMP 37.2; O2SAT 100; BMI 34.7
--- NOTE | 2022-09-02 22:28 | ED_ITS ---
Documented by User: Buddy Núñez MD 09/17/22 17:37 HPI - Neuro Symptoms/Deficit General: Chief Complaint: Neuro Symptoms/Deficit Stated Complaint: stroke like symptoms Time Seen by Provider: 09/02/22 22:27 History of Present Illness: Mr. Florian is a 32-year-old gentleman with history of psychiatric disorder and substance abuse currently in law enforcement custody presenting to the emergency department due to strokelike symptoms. He reports an abnormal feeling on the left side of his head starting last night and woke up with right-sided facial droop as well as abnormal weakness and sensory changes in the right upper and lower extremity. Since onset symptoms have persisted. Intensity is moderate to severe. Denies similar episodes in the past. He does report a history of liver disease and renal disease that the liver disease improved. No other specific changes in health, exacerbating, or alleviating factors identified. Onset (ago): hour(s) Time: 00:00 Last Observed Normal: 00:00 Timing confirmed by: other Location: right face, dysarthria, right arm and right leg History of same: No Severity: severe Quality: weak and numb Relieving factors: none Exacerbating factors: none Context: other (Woke up with symptoms) Associated symptoms: Reports chest pain and headache(s) Review of Systems General: Reports: 10 or more systems reviewed and unremarkable except in HPI and below Card: Reports: chest pain Neuro: Reports: headache(s) PFS ED PFSH: Medical History Psychiatric care Social History Smoking and tobacco status: current every day smoker cigarettes Packs smoked per day: 0.25 Years cigarettes smoked: 20 Quit status (tobacco): has tried quititng Number of times tried to quit tobacco: 5 Second hand smoke exposure: No NIH stroke score NIHSS: Level Of Consciousness - 1a: 0 Level Of Consciousness Questions - 1b: Both Correct Level Of Consciousness Commands - 1c: Both Correct Best Gaze - 2: Normal Visual Emery - 3: No Visual Loss Facial Palsy - 4: Complete Paralysis Motor Arm Right - 5: Drift Motor Arm Left - 5: No Drift Motor Leg Right - 6: Drift Motor Leg Left - 6: No Drift Limb Ataxia - 7: Present In One Limb Sensory - 8: Mild To Moderate Loss Best Language - 9: Mild/Moderate Aphasia Dysarthia - 10: Normal Extinction And Inattention - 11: 0 Score: Total Score: 8 Physical Exam Const: COMMON NORMALS: alert GENERAL APPEARANCE: cooperative and well developed HENMT: COMMON NORMALS: normocephalic and atraumatic HEAD & SCALP: normocephalic and atraumatic Eye: COMMON NORMALS: conjunctivae normal CONJUNCTIVA: Yes conjunctivae normal SCLERA: sclerae normal Neck/C-Spine: COMMON NORMALS: supple GENERAL: Yes trachea midline Resp: COMMON NORMALS: clear to auscultation bilaterally EFFORT & INSPECTION: Yes able to speak in complete sentences AUSCULTATION: clear to auscultation bilaterally Cardio: COMMON NORMALS: regular rate and regular rhythm RATE: regular rate RHYTHM: regular rhythm GI: COMMON NORMALS: Soft to palpation PALPATION: Yes Soft to palpation and No Tenderness to palpation present (GI) Extremity: GENERAL: Yes normal exam except as noted and No edema Neuro: COMMON NORMALS: moves all extremities SENSORIUM/ORIENTATION: Yes alert and No Orientation impaired OTHER: Right facial droop, indeterminate whether this is forehead sparing or not. Mildly dysarthric speech. Subjective sensory changes in the right face, weakness and sensory changes in the right upper and right lower extremity. Mild ataxia though questionable effort dependence on the right upper extremity testing of ataxia. Psych: COMMON NORMALS: mental status grossly normal and Normal thought process present THOUGHT PROCESS: Normal thought process present Course Vital Signs: Vital signs: Vital Signs Temperature 98.9 F 09/02/22 22:26 Pulse Rate 76 09/03/22 02:28 Respiratory Rate 17 09/03/22 02:28 Blood Pressure 141/99 09/03/22 02:28 Pulse Oximetry 95 09/03/22 02:28 Oxygen Delivery Me thod 09/02/22 22:26 MDM - Neuro Symptoms/Deficit Medical Decision Making 32-year-old gentleman presenting to the emergency department for strokelike symptoms. Onset of symptoms was patient this morning and patient is not a tPA candidate. Exam as above. EKG notable for sinus rhythm with nonspecific ST segment abnormalities, no STEMI. Labs with mild hemoconcentration, no significant derangement, negative urinalysis. Given associated headache plan to treat with migraine cocktail. Patient handed off to Dr. Mao pending completion of imaging and further ED eval uation including reassessment. I am quite unconvinced given physical exam that patient has had a stroke. Symptoms more likely associated with complex migraine or Lopez's palsy. Likely plan to discharge pending completion of ED evaluation and reassessment of patient condition. 32-year-old male checked out to me at shift change by the previous physician. This gentleman has been experiencing headache, right facial weakness, and some more nebulous right upper and lower extremity weakness for the past 24 hours at least. I have examined the patient as well. His right facial weakness is very dense, and his forehead is certainly and definitely involved. As above, his right extremity weakness both upper and lower are more nebulous. His [id number] is normal for me. He does not have a pronator drift for me. He has walk in the ER without help. He is experiencing no true dysarthria, and no speech deficit. He also complains of a significant headache which is now resolved after medication. In fact essentially all of his symptoms are improved significantly except the facial droop. All of these things speak against a supranuclear lesion in the brain neurologically. His head CT is negative. After 24 hours of symptoms, 1 would expect a subacute stroke causing this dense of facial weakness to make an appearance on CT. His CTA is negative as well. His laboratory is not remarka ble. Now that his headache is resolved, he is asking for a blanket and food. He will be provided these. The differential diagnosis includes Lopez's palsy, complex migraine, conversion disorder with headache, and much less likelySubacute stroke. He will be allowed back with treatment for Lopez's palsy including valacyclovir and a tapering dose of steroid he was reassured that 85% of Lopez's palsy patient's have resolved facial weakness by 3 weeks. Medical Records I reviewed the patient's medical records. Lab Data I reviewed the patient's lab results. 09/02/22 22:30 09/02/22 22:[address] 09/02/22 22:36 IMPRESSION: No acute intracranial abnormality. Chest X-Ray 09/02/22 22:37 IMPRESSION: No acute findings. Head/Neck CTA 09/02/22 22:46 IMPRESSION: No large vessel stenosis or occlusion. IMPRESSION: No stenosis or occlusion. REFERENCES: NASCET CRITERIA. The degree of stenosis in the cervical segment of the internal carotid artery is based on NASCET criteria. Normal is no stenosis. Mild is less than 50% stenosis. Moderate is 50-69% stenosis. Severe is 70% to 99% stenosis. Total occlusion is no detectable patent lumen. Laboratory Results WBC 9.0 10^3/uL (4.0-10.0) 09/02/22: RBC 5.57 10^6/uL (4.1-5.3) H 09/02/22: Hgb 17.0 g/dL (11.7-16.6) H 09/02/22: Hct 50.1 % (42.0-52.0) 09/02/22: MCV 89.9 fl (80-94) 09/02/22: MCH 30.5 pg (28.0-34.0) 09/02/22: MCHC 33.9 g/dL (30.0-36.0) 09/02/22: RDW 11.5 % (12.1-15.1) L 09/02/22: Plt Count 283 10^3/cmm (130-400) 09/02/22: MPV 9.5 fL (7.4-10.4) 09/02/22: Neut % (Auto) 51.4 % 09/02/22: Lymph % (Auto) 38.5 % 09/02/22: [place] % (Auto) 7.4 % 09/02/22: Eos % (Auto) 1.9 % 09/02/22: Baso % (Auto) 0.6 % 09/02/22: Neut # (Auto) 4.60 10^3/uL (1.8-7.7) 09/02/22: Lymph # (Auto) 3.5 10^3/uL (0.8-4.8) 09/02/22: [place] # (Auto) 0.7 10^3/uL (0.2-0.9) 09/02/22: Eos # (Auto) 0.2 10^3/uL (0.0-0.8) 09/02/22 22:30 Baso # (Auto) 0.1 10^3/uL (0.0-0.1) 09/02/22: Nucleated RBC % (auto) 0 % 09/02/22: Nucleated RBCs # 0.0 /100WBC 09/02/22 22:30 Sodium 142 mmol/L (136-145) 09/02/22: Potassium 3.6 mmol/L (3.5-5.1) 09/02/22: Chloride 102 mmol/L (98-107) 09/02/22: Carbon Dioxide 28 mmol/L (22-29) 09/02/22: Anion Gap 15.6 (5-19) 09/02/22: BUN 13 mg/dL (6-20) 09/02/22: Creatinine 0.9 mg/dL (0.7-1.2) 09/02/22: GFR Calculation 97.2 mL/min (90-130) 09/02/22: Glucose 158 mg/dL (65-115) H 09/02/22: Calculated Osmolality 297 mOsm/kg (285-295) H 09/02/22: Calcium 9.9 mg/dL (8.5-10.5) 09/02/22: Total Bilirubin 0.3 mg/dL (0.15-1.2) 09/02/22: AST 25 U/L (0-40) 09/02/22: ALT 35 U/L (0-41) 09/02/22: Alkaline Phosphatase 66 U/L (40-130) 09/02/22: Troponin T Baseline 6 ng/L (0-15) 09/02/22: Total Protein 7.6 g/dL (6.6-8.7) 09/02/22: Albumin 4.4 g/dL (3.5-5.2) 09/02/22: Globulin 3.2 g/dL (1.3-4.6) 09/02/22: TSH 2.64 uIU/mL (0.27-4.20) 12/18/22 22:30 Urine Color Yellow (Yellow) 09/02/22 22:52 Urine Appearance Clear (CLEAR) 09/02/22 22:52 Urine pH 7 (5-7) 09/02/22 22:52 Ur Specific Bishop 1.015 (1.005-1.030) 09/02/22 22:52 Urine Protein Neg (Negative) 09/02/22 22:52 Urine Glucose (UA) Norm (Normal) 09/02/22 22:52 Urine Ketones Negative (Negative) 09/02/22 22:52 Urine Blood Neg (Negative) 09/02/22 22:52 Urine Nitrate Negative (Negative) 09/02/22 22:52 Urine Bilirubin Neg (Negative) 09/02/22 22:52 Urine Urobilinogen Neg mg/dL (Negative) 09/02/22 22:52 Ur Leukocyte Esterase Negative (Negative) 09/02/22 22:52 Discharge Plan Discharge Patient Disposition: Home Clinical Impression: Headache, Facial paralysis/Conway palsy Condition: Stable Prescriptions: New Medrol (Mak) 4 mg tablets,dose pack See Rx Instructions .ROUTE .COMPLEX Qty: 21 0RF Rx Instructions: orally per package directions No Action bupropion HCl [Wellbutrin XL] 150 mg tablet extended release 24 hr 150 mg PO QAM Qty: 30 2RF buspirone 10 mg tablet 10 mg PO TID Qty: 90 2RF quetiapine [Seroquel] 100 mg tablet 100 mg PO .HS Qty: 30 2RF Naprosyn 500 mg tablet 500 mg PO BID PRN (Reason: pain) Qty: 20 0RF hydrocodone-acetaminophen 5-325 mg tablet 1 tab PO Q8H PRN (Reason: pain (scale score 7-10)) Qty: 6 0RF ibuprofen 800 mg tablet 800 mg PO Q8H PRN (Reason: pain) Qty: 20 0RF Discharge Orders: Discharge ED (Routine); Ordered 09/03/22 Ordered By: Jeff Mao Referrals: Tawana Hodges, [facility] [Primary Care Provider] - 1-3 days Patient Instructions: Lopez Palsy (ED), General Headache (ED) Coding Level of Care Code ED Drafter Assistant for Chg Fwd Exam Comprehensive Documented by User: Jeffcaesar Mao, DO 09/03/22 01:56 HPI - Neuro Symptoms/Deficit General: Chief Complaint: Neuro Symptoms/Deficit Stated Complaint: stroke like symptoms Time Seen by Provider: 09/02/22 22:27 [facility] ED PFSH: Medical History Psychiatric care Social History Smoking and tobacco status: current every day smoker cigarettes Packs smoked per day: 0.25 Years cigarettes smoked: 20 Quit status (tobacco): has tried quititng Number of times tried to quit tobacc o: 5 Second hand smoke exposure: No NIH stroke score Score: Total Score: 8 Course Vital Signs: Vital signs: Vital Signs Temperature 98.9 F 09/02/22 22:26 Pulse Rate 76 09/03/22 02:28 Respiratory Rate 17 09/03/22 02:28 Blood Pressure 141/99 09/03/22 02:28 Pulse Oximetry 95 09/03/22 02:28 Oxygen Delivery Me thod 09/02/22 22:26 MDM - Neuro Symptoms/Deficit Medical Decision Making 32-year-old male checked out to me at shift change by the previous physician. This gentleman has been experiencing headache, right facial weakness, and some more nebulous right upper and lower extremity weakness for the past 24 hours at least. I have examined the patient as well. His right facial weakness is very dense, and his forehead is certainly and definitely involved. As above, his right extremity weakness both upper and lower are more nebulous. His [id number] is normal for me. He does not have a pronator drift for me. He has walk in the ER without help. He is experiencing no true dysarthria, and no speech deficit. He also complains of a significant headache which is now resolv ed after medication. In fact essentially all of his symptoms are improved significantly except the facial droop. All of these things speak against a supranuclear lesion in the brain neurologically. His head CT is negative. After 24 hours of symptoms, 1 would expect a subacute stroke causing this dense of facial weakness to make an appearance on CT. His CTA is negative as well. His laboratory is not remarkable. Now that his headache is resolved, he is asking for a blanket and food. He will be provided these. The differential diagnosis includes Lopez's palsy, complex migraine, conversion disorder with headache, and much less likelySubacute stroke. He will be allowed back with treatment for Lopez's palsy including valacyclovir and a tapering dose of steroid he was reassured that 85% of Lopez's palsy patient's have resolved facial weakness by 3 weeks. Lab Data 09/02/22 22:30 09/02/22 22:[address] 09/02/22 22:36 IMPRESSION: No acute intracranial abnormality. Chest X-Ray 09/02/22:37 IMPRESSION: No acute findings. Head/Neck CTA 09/02/22 22:46 IMPRESSION: No large vessel stenosis or occlusion. IMPRESSION: No stenosis or occlusion. REFERENCES: NASCET CRITERIA. The degree of stenosis in the cervical segment of the internal carotid artery is based on NASCET criteria. Normal is no stenosis. Mild is less than 50% stenosis. Moderate is 50-69% stenosis. Severe is 70% to 99% stenosis. Total occlusion is no detectable patent lumen. Laboratory Results WBC 9.0 10^3/uL (4.0-10.0) 09/02/22 22: RBC 5.57 10^6/uL (4.1-5.3) H 09/02/22:30 Hgb 17.0 g/dL (11.7-16.6) H 09/02/22:30 Hct 50.1 % (42.0-52.0) 09/02/22: MCV 89.9 fl (80-94) 09/02/22: MCH 30.5 pg (28.0-34.0) 09/02/22: MCHC 33.9 g/dL (30.0-36.0) 09/02/22: RDW 11.5 % (12.1-15.1) L 09/02/22: Plt Count 283 10^3/cmm (130-400) 09/02/22 22: MPV 9.5 fL (7.4-10.4) 09/02/22: Neut % (Auto) 51.4 % 09/02/22: Lymph % (Auto) 38.5 % 09/02/22: [place] % (Auto) 7.4 % 09/02/22: Eos % (Auto) 1.9 % 09/02/22: Baso % (Auto) 0.6 % 09/02/22: Neut # (Auto) 4.60 10^3/uL (1.8-7.7) 09/02/22: Lymph # (Auto) 3.5 10^3/uL (0.8-4.8) 09/02/22: [place] # (Auto) 0.7 10^3/uL (0.2-0.9) 09/02/22: Eos # (Auto) 0.2 10^3/uL (0.0-0.8) 09/02/22: Baso # (Auto) 0.1 10^3/uL (0.0-0.1) 09/02/22: Nucleated RBC % (auto) 0 % 09/02/22 Nucleated RBCs # 0.0 /100WBC 09/02/22: Sodium 142 mmol/L (136-145) 09/02/22: Potassium 3.6 mmol/L (3.5-5.1) 09/02/22: Chloride 102 mmol/L (98-107) 09/02/22: Carbon Dioxide 28 mmol/L (22-29) 09/02/22: Anion Gap 15.6 (5-19) 09/02/22: BUN 13 mg/dL (6-20) 09/02/22: Creatinine 0.9 mg/dL (0.7-1.2) 09/02/22: GFR Calculation 97.2 mL/min (90-130) 09/02/22: Glucose 158 mg/dL (65-115) H 09/02/22: Calculated Osmolality 297 mOsm/kg (285-295) H 09/02/22 22:30 Calcium 9.9 mg/dL (8.5-10.5) 09/02/22 22:30 Total Bilirubin 0.3 mg/dL (0.15-1.2) 09/02/22 22:30 AST 25 U/L (0-40) 09/02/22 22:30 ALT 35 U/L (0-41) 09/02/22 22:30 Alkaline Phosphatase 66 U/L (40-130) 09/02/22 22:30 Troponin T Baseline 6 ng/L (0-15) 09/02/22 22:30 Total Protein 7.6 g/dL (6.6-8.7) 09/02/22 22:30 Albumin 4.4 g/dL (3.5-5.2) 09/02/22 22:30 Globulin 3.2 g/dL (1.3-4.6) 09/02/22 22:30 TSH 2.64 uIU/mL (0.27-4.20) 09/02/22 22:30 Urine Color Yellow (Yellow) 09/02/22 22:52 Urine Appearance Clear (CLEAR) 09/02/22 22:52 Urine pH 7 (5-7) 09/02/22 22:52 Ur Specific Bishop 1.015 (1.005-1.030) 09/02/22 22:52 Urine Protein Neg (Negative) 09/02/22 22:52 Urine Glucose (UA) Norm (Normal) 09/02/22 22:52 Urine Ketones Negative (Negative) 09/02/22 22:52 Urine Blood Neg (Negative) 09/02/22 22:52 Urine Nitrate Negative (Negative) 09/02/22 22:52 Urine Bilirubin Neg (Negative) 09/02/22 22:52 Urine Urobilinogen Neg mg/dL (Negative) 09/02/22 22:52 Ur Leukocyte Esterase Negative (Negative) 09/02/22 22:52 Discharge Plan Discharge Patient Disposition: Home Clinical Impression: Headache, Facial paralysis/Conway palsy Condition: Stable Prescriptions: New Medrol (Mak) 4 mg tablets,dose pack See Rx Instructions .ROUTE .COMPLEX Qty: 21 0RF Rx Instructions: orally per package directions No Action bupropion HCl [Wellbutrin XL] 150 mg tablet extended release 24 hr 150 mg PO QAM Qty: 30 2RF buspirone 10 mg tablet 10 mg PO TID Qty: 90 2RF quetiapine [Seroquel] 100 mg tablet 100 mg PO .HS Qty: 30 2RF Naprosyn 500 mg tablet 500 mg PO BID PRN (Reason: pain) Qty: 20 0RF hydrocodone-acetaminophen 5-325 mg tablet 1 tab PO Q8H PRN (Reason: pain (scale score 7-10)) Qty: 6 0RF ibuprofen 800 mg tablet 800 mg PO Q8H PRN (Reason: pain) Qty: 20 0RF Discharge Orders: Discharge ED (Routine); Ordered 09/03/22 Ordered By: Jeff Mao Referrals: Tawana Hodges, [facility] [Primary Care Provider] - 1-3 days Patient Instructions: Lopez Palsy (ED), General Headache (ED) Coding Level of Care Code ED Drafter Assistant for Chg Fwd Exam Comprehensive
--- NOTE | 2022-09-02 22:36 | CTR_ITS ---
PROCEDURE INFORMATION: Exam: CT Head Without Contrast Exam date and time: 09/02/2022 11:00 PM Age: 32 years old Clinical indication: Other: RT side pain; Additional info: Stroke like symptoms TECHNIQUE: Imaging protocol: Computed tomography of the head without contrast. Radiation optimization: All CT scans at this facility use at least one of these dose optimization techniques: automated exposure control; mA and/or kV adjustment per patient size (includes targeted exams where dose is matched to clinical indication); or iterative reconstruction. COMPARISON: CT head wo con* [id number] 03/09/2019 1:56 AM RADIATION DOSE METRICS: Total DLP (mGy-cm): 1175.51 FINDINGS: Brain: Normal. No hemorrhage. Unremarkable white matter. No mass effect. Cerebral ventricles: No ventriculomegaly. Paranasal sinuses: Visualized sinuses are unremarkable. No fluid levels. Mastoid air cells: Visualized mastoid air cells are well aerated. Bones/joints: Unremarkable. No acute fracture. Soft tissues: Unremarkable. CT/CT head wo con* [id number] IMPRESSION: No acute intracranial abnormality.
--- NOTE | 2022-09-02 22:37 | XRR_ITS ---
PROCEDURE INFORMATION: Exam: XR Chest Exam date and time: 09/02/2022 10:54 PM Age: 32 years old Clinical indication: Other: RT side pain; Additional info: Stroke like symptoms TECHNIQUE: Imaging protocol: Radiologic exam of the chest. Views: 1 view. COMPARISON: CR XR chest 1V portable [id number] 05/01/2021 5:25 PM FINDINGS: Lungs: Unremarkable. No consolidation. Pleural spaces: Unremarkable. No pleural effusion. No pneumothorax. Heart/Mediastinum: Unremarkable. No cardiomegaly. Bones/joints: Unremarkable. XR/XR chest 1V portable [id number] IMPRESSION: No acute findings.
--- NOTE | 2022-09-02 22:46 | ECG_ITS ---
[facility] Test Date: 2022-09-02 Pat Name: Richard Florian Department: Room: Gender: Male Manager Project: : 1990 Requested By: Buddy Núñez Order Number: [id number] Sekou MD: Lamin Encinas M.D. Measurements Intervals [place] Rate: 83 P: 72 NC: 179 QRS: 88 QRSD: 103 T: 83 QT: 323 QTc: 380 Interpretive Statements SINUS RHYTHM NONSPECIFIC T-WAVE ABNORMALITY Compared to ECG 03/19/2020 23:55:42 T-wave abnormality now present Sinus tachycardia no longer present Electronically Signed On 09-03-2022 6:18:22 [employer] MEMBER by Lamin Encinas M.D. [id number] f
--- NOTE | 2022-09-02 22:46 | CTR_ITS ---
PROCEDURE INFORMATION: Exam: CTA Head With Contrast, Arteriography Exam date and time: 09/02/2022 11:06 PM Age: 32 years old Clinical indication: Other: RT side pain; Additional info: Stroke like symptoms, R face, rue, rle TECHNIQUE: Imaging protocol: Computed tomographic angiography of the head with contrast. Exam focused on the arteries. 3D rendering (Not supervised by radiologist): MIP and/or 3D reconstructed images were created by the technologist. Radiation optimization: All CT scans at this facility use at least one of these dose optimization techniques: automated exposure control; mA and/or kV adjustment per patient size (includes targeted exams where dose is matched to clinical indication); or iterative reconstruction. Contrast material: OMNI 350; Contrast volume: 100 ml; Contrast route: INTRAVENOUS (IV); COMPARISON: CT head wo con* [id number] 09/02/2022 11:00 PM RADIATION DOSE METRICS: Total DLP (mGy-cm): 928.85 FINDINGS: ANTERIOR CIRCULATION: Right internal carotid artery: Intracranial segment is patent with no significant stenosis. No aneurysm. Right middle cerebral artery: No occlusion or significant stenosis. No aneurysm. Right anterior cerebral artery: No occlusion or significant stenosis. No aneurysm. Left internal carotid artery: Intracranial segment is patent with no significant stenosis. No aneurysm. Left middle cerebral artery: No occlusion or significant stenosis. No aneurysm. Left anterior cerebral artery: No occlusion or significant stenosis. No aneurysm. POSTERIOR CIRCULATION: Right vertebral artery: No occlusion or significant stenosis. No aneurysm. Left vertebral artery: No occlusion or significant stenosis. No aneurysm. Basilar artery: No occlusion or significant stenosis. No aneurysm. Right posterior cerebral artery: No occlusion or significant stenosis. No aneurysm. Left posterior cerebral artery: No occlusion or significant stenosis. No aneurysm. Brain: No definite mass, mass effect, or midline shift. Cerebral ventricles: No ventriculomegaly. Bones/joints: Unremarkable. No acute fracture. Soft tissues: Unremarkable. PROCEDURE INFORMATION: Exam: CTA Neck With Contrast Exam date and time: 09/02/2022 11:06 PM Age: 32 years old Clinical indication: Other: RT side pain; Additional info: Stroke like symptoms, R face, rue, rle TECHNIQUE: Imaging protocol: Computed tomographic angiography of the neck with contrast. 3D rendering (Not supervised by radiologist): MIP and/or 3D reconstructed images were created by the technologist. Radiation optimization: All CT scans at this facility use at least one of these dose optimization techniques: automated exposure control; mA and/or kV adjustment per patient size (includes targeted exams where dose is matched to clinical indication); or iterative reconstruction. Contrast material: OMNI 350; Contrast volume: 100 ml; Contrast route: INTRAVENOUS (IV); COMPARISON: US soft tissue head neck [id number] 04/28/2022 4:05 PM RADIATION DOSE METRICS: Total DLP (mGy-cm): 928.85 FINDINGS: Right common carotid artery: No stenosis. No dissection or occlusion. Right internal carotid artery: No stenosis of the extracranial segment. No dissection or occlusion. Right external carotid artery: No occlusion or stenosis of the origin. Left common carotid artery: No stenosis. No dissection or occlusion. Left internal carotid artery: No stenosis of the extracranial segment. No dissection or occlusion. Left external carotid artery: No occlusion or stenosis of the origin. Right vertebral artery: No stenosis. No dissection or occlusion. Left vertebral artery: No stenosis. No dissection or occlusion. Soft tissues: Normal. No significant soft tissue swelling. Bones/joints: No acute fracture. CT/CT angio headneck* [id number] IMPRESSION: No large vessel stenosis or occlusion. IMPRESSION: No stenosis or occlusion. REFERENCES: NASCET CRITERIA. The degree of stenosis in the cervical segment of the internal carotid artery is based on NASCET criteria. Normal is no stenosis. Mild is less than 50% stenosis. Moderate is 50-69% stenosis. Severe is 70% to 99% stenosis. Total occlusion is no detectable patent lumen.
[2022-09-02 22:48] LABS: Basophils # 0.1 10^3/uL (0.0-0.1); Basophils % 0.6 %; Eosinophils # 0.2 10^3/uL (0.0-0.8); Eosinophils % 1.9 %; Hematocrit 50.1 % (42.0-52.0); Lymphocytes # 3.5 10^3/uL (0.8-4.8); Lymphocytes % 38.5 %; Mean Corpuscular HGB Conc 33.9 g/dL (30.0-36.0); Mean Corpuscular Hemoglobin 30.5 pg (28.0-34.0); Mean Corpuscular Volume 89.9 fl (80-94); Mean Platelet Volume 9.5 fL (7.4-10.4); Monocytes # 0.7 10^3/uL (0.2-0.9); Monocytes % 7.4 %; Neutrophils % 51.4 %; Nucleated Red Blood Cells % 0 %; Platelet Count 283 10^3/cmm (130-400); Red Blood Count 5.57 10^6/uL (4.1-5.3); Red Cell Distribution Width 11.5 % (12.1-15.1)
[2022-09-02] MEDS: iohexol 350 mg/mL 500 mL Btl (per mL) IV (23:05)
[2022-09-02 23:06] LABS: Add Urine Microscopic? NO; Charge for UA Resulting for Rev
[2022-09-02 23:10] LABS: Bilirubin Urine Neg (Negative); Blood Urine Neg (Negative); Glucose Urine UA Norm (Normal); Ketones Urine Negative (Negative); Leukocyte Esterase Urine Negative (Negative); Nitrate Urine Negative (Negative); Protein Urine Neg (Negative); Specific Gravity, Urine 1.015 (1.005-1.030); Urine Appearance Clear (CLEAR); Urine Color Yellow (Yellow); Urobilinogen Urine Neg (Negative); pH Urine 7 (5-7)
[2022-09-02 23:16] LABS: Alanine Aminotransferase 35 U/L (0-41); Albumin Level 4.4 g/dL (3.5-5.2); Alkaline Phosphatase 66 U/L (40-130); Blood Urea Nitrogen 13 mg/dL (6-20); Calcium 9.9 mg/dL (8.5-10.5); Carbon Dioxide 28 mmol/L (22-29); Chloride 102 mmol/L (98-107); Globulin 3.2 g/dL (1.3-4.6); Glomerular Filtration Rate 97.2 mL/min (90-130); Glucose 158 mg/dL (65-115); Osmolality Calculated 297 mOsm/kg (285-295); Sodium 142 mmol/L (136-145); Thyroid Stimulating Hormone 2.64 uIU/mL (0.27-4.20); Total Bilirubin 0.3 mg/dL (0.15-1.2); Total Protein 7.6 g/dL (6.6-8.7)
[2022-09-02 23:22] LABS: Anion Gap 15.6 (5-19); Aspartate Amino Transferase 25 U/L (0-40); Potassium 3.6 mmol/L (3.5-5.1)
[2022-09-02] MEDS: diphenhydrAMINE 50 mg/mL SDV 1mL 25 MG IVP (23:22)
[2022-09-02] MEDS: metoclopramide 5 mg/mL SDV 2 mL 10 MG IVP (23:24)
[2022-09-02] MEDS: sodium chloride 0.9% 1,000 ML 999 ML IV (23:27)
[2022-09-02 23:37] LABS: Troponin(5th) Baseline 6 ng/L (0-15)
[2022-09-03 00:03] VITALS: BP 149/83; PULSE 77; RESP 20; O2SAT 98
[2022-09-03] MEDS: ketorolac 30 mg/mL INJ 15 MG IVP (00:33)
[2022-09-03] MEDS: haloperidol inj 5 mg/mL INJ 1 mL IVP (00:33)
[2022-09-03] MEDS: valproic acid inj 500 MG in sodium chloride 0.9% (plus) 50 ML 50 MG IV (01:04)
[2022-09-03 02:00] VITALS: BP 154/84; PULSE 73; RESP 18; O2SAT 95
[2022-09-03 02:28] VITALS: BP 141/99; PULSE 76; RESP 17; O2SAT 95
--- NOTE | 2022-09-03 04:46 | ECG_ITS ---
[facility] Test Date: 2022-09-03 Pat Name: Richard Florian Department: Room: Gender: Male Region Manager: : 1990 Requested By: Buddy Núñez Order Number: [id number] Sekou MD: Lamin Encinas M.D. Measurements Intervals [place] Rate: 68 P: 50 OR: 184 QRS: 69 QRSD: 114 T: 60 QT: 414 QTc: 441 Interpretive Statements SINUS RHYTHM MODERATE INTRAVENTRICULAR CONDUCTION DELAY [110+ ms QRS DURATION] Compared to ECG 09/02/2022 22:32:56 Intraventricular conduction delay now present T-wave abnormality no longer present Electronically Signed On 09-03-2022 6:19:52 RN REVIEW by Lamin Encinas M.D. [id number]
== END 2022-09-03 02:45 | disposition home or self-care (01) ==
PROVIDERS: Emergency Medicine; Emergency Provider Emergency Medicine; PCP Nurse Practitioner
DX: R51.9 Headache, unspecified (principal); G51.0 Bell's palsy; F17.210 Nicotine dependence, cigarettes, uncomplicated
CPT/HCPCS: 70450; 70496; 70498; 71045; 80053; 81003; 84443; 84484; 85025; 93005; 96365; 96367; 99285; J1200; J1630; J1885; J2765; J2930; J3475; J3490; J7030; Q9967

== ENCOUNTER 2022-10-28 20:18 | Emergency (ER) | payer MEDICAID, SELFPAY ==
[2022-10-28 20:19] VITALS: BP 158/89; PULSE 96; RESP 20; TEMP 36.7; O2SAT 96
--- NOTE | 2022-10-28 21:16 | CTR_ITS ---
PROCEDURE INFORMATION: Exam: CT Head Without Contrast Exam date and time: 10/28/2022 9:26 PM Age: 32 years old Clinical indication: Pain; Headache not specified; Additional info: Severe headache TECHNIQUE: Imaging protocol: Computed tomography of the head without contrast. Sagittal and coronal reformatted images were created and reviewed. Radiation optimization: All CT scans at this facility use at least one of these dose optimization techniques: automated exposure control; mA and/or kV adjustment per patient size (includes targeted exams where dose is matched to clinical indication); or iterative reconstruction. Other protocol: This patient has received 2 known CTs and 0 known cardiac nuclear medicine studies in the 12 months prior to the current study. COMPARISON: CT head wo con* [id number] 09/02/2022 11:00 PM RADIATION DOSE METRICS: Total DLP (mGy-cm): 1200.76 FINDINGS: Brain: No acute intracranial hemorrhage. No acute infarct. No intra-axial or extra-axial masses. Irizarry-white matter differentiation is preserved. No cerebral edema. No extra-axial fluid collections. No midline shift. No evidence for Chiari 1 malformation. Cerebral ventricles: No hydrocephalus. Paranasal sinuses: Paranasal sinuses are clear. Mastoid air cells: Stable small amount of fluid in the right and left mastoid air cells. Orbital cavities: Globes and lenses, extraocular muscles, and optic nerves are intact bilaterally. No acute intraorbital abnormality. Bones/joints: No acute fracture. Soft tissues: No acute abnormality of the extracranial soft tissues. CT/CT head wo con* [id number] IMPRESSION: 1. No acute abnormality of the brain. 2. Stable small amount of fluid in the right and left mastoid air cells.
--- NOTE | 2022-10-28 21:18 | W.ED.HA ---
HPI - Headache General: Chief Complaint: Headache Stated Complaint: HEADACHE Time Seen by Provider: 10/28/22 21:03 History of Present Illness: 32-year-old male patient comes in tonight with complaints of headache. Patient reports pain on the left side of his head. Patient states symptoms have been going on since this afternoon. Patient reports this is worst headache. Patient has had prior migraines before in the past. Review of the record notes some substance abuse disorder, borderline personality disorder. Patient appears nontoxic. Patient appears in mild to moderate pain. Review of Systems Neuro: Reports: headache(s) PFSH ED PFSH: Medical History Psychiatric care Social History Smoking and tobacco status: current every day smoker cigarettes Packs smoked per day: 0.25 Years cigarettes smoked: 20 Quit status (tobacco): has tried quititng Number of times tried to quit tobacco: 5 Second hand smoke exposure: No Physical Exam Const: COMMON NORMALS: alert HENMT: COMMON NORMALS: normocephalic and Normal external nose present HEAD & SCALP: normocephalic NOSE: Normal external nose present MOUTH: Normal oral and palatal mucosa present Eye: GENERAL EYE: appearance normal, both eyes and all related structures Neck/C-Spine: CERVICAL SPINE: No Cervical spine tenderness and Yes Paracervical muscle tenderness left Chest: COMMONS NORMALS: normal palpation of entire chest wall Resp: COMMON NORMALS: normal respiratory effort and clear to auscultation bilaterally AUSCULTATION: clear to auscultation bilaterally Cardio: COMMON NORMALS: regular rate and regular rhythm RATE: regular rate RHYTHM: regular rhythm GI: COMMON NORMALS: Soft to palpation and non-tender PALPATION: Yes Soft to palpation Back/Pelvis: COMMON NORMALS: thoracic and lumbar spine normal to inspection Extremity: COMMON NORMALS: no pedal edema Neuro: SENSORIUM/ORIENTATION: Yes alert Skin: COMMON NORMALS: turgor normal GENERAL SKIN EXAM: turgor normal Course Vital Signs: Vital signs: Vital Signs Temperature 98.0 F 10/28/22 20:19 Pulse Rate 96 10/28/22 20:19 Respiratory Rate 20 H 10/28/22 20:19 Blood Pressure 158/89 10/28/22 20:19 Pulse Oximetry 96 10/28/22 20:19 MDM - Headache Medical Decision Making Patient comes in today for complaints of headache starting this afternoon. Patient describes as worst headache ever. On exam no focal neurodeficits are noted. Pupils are equal and reactive. Patient moves all extremities well. Differential diagnosis includes tension type headache, migraine headache, acute sinusitis, cluster headache. CT of the head noted no intracranial bleeding or abnormality. CBC was unremarkable. Reviewed exam with patient with recommendations for treatment and follow-up. Patient was treated with Reglan, Toradol, and dexamethasone for migraine headache. Patient had resolution of headache and was released home with need for follow-up with primary care. Lab Data 10/28/22 21:58 10/28/22 21:[address] 10/28/22 21:16 IMPRESSION: 1. No acute abnormality of the brain. 2. Stable small amount of fluid in the right and left mastoid air cells. Laboratory Results WBC 7.9 10^3/uL (4.0-10.0) 10/28/22 21:58 RBC 5.03 10^6/uL (4.1-5.3) 10/28/22 21:58 Hgb 15.3 g/dL (11.7-16.6) 10/28/22 21:58 Hct 46.0 % (42.0-52.0) 10/28/22 21:58 MCV 91.5 fl (80-94) 10/28/22 21:58 MCH 30.4 pg (28.0-34.0) 10/28/22 21:58 MCHC 33.3 g/dL (30.0-36.0) 10/28/22 21:58 RDW 11.8 % (12.1-15.1) L 10/28/22 21:58 Plt Count 236 10^3/cmm (130-400) 10/28/22 21:58 MPV 9.9 fL (7.4-10.4) 10/28/22 21:58 Neut % (Auto) 46.5 % 10/28/22 21:58 Lymph % (Auto) 39.8 % 10/28/22 21:58 [place] % (Auto) 9.4 % 10/28/22 21:58 Eos % (Auto) 3.4 % 10/28/22 21:58 Baso % (Auto) 0.6 % 10/28/22 21:58 Neut # (Auto) 3.69 10^3/uL (1.8-7.7) 10/28/22 21:58 Lymph # (Auto) 3.2 10^3/uL (0.8-4.8) 10/28/22 21:58 [place] # (Auto) 0.8 10^3/uL (0.2-0.9) 10/28/22 21:58 Eos # (Auto) 0.3 10^3/uL (0.0-0.8) 10/28/22 21:58 Baso # (Auto) 0.1 10^3/uL (0.0-0.1) 10/28/22 21:58 Nucleated RBC % (auto) 0 % 10/28/22 21:58 Nucleated RBCs # 0.0 /100WBC 10/28/22 21:58 Discharge Plan Discharge Patient Disposition: Home Clinical Impression: Migraine Qualifiers: Migraine type: unspecified Status migrainosus presence: without status migrainosus Intractability: not intractable Qualified Code(s): G43.909 - Migraine, unspecified, not intractable, without status migrainosus Condition: Stable Prescriptions: No Action bupropion HCl [Wellbutrin XL] 150 mg tablet extended release 24 hr 150 mg PO QAM Qty: 30 2RF buspirone 10 mg tablet 10 mg PO TID Qty: 90 2RF quetiapine [Seroquel] 100 mg tablet 100 mg PO .HS Qty: 30 2RF Naprosyn 500 mg tablet 500 mg PO BID PRN (Reason: pain) Qty: 20 0RF hydrocodone-acetaminophen 5-325 mg tablet 1 tab PO Q8H PRN (Reason: pain (scale score 7-10)) Qty: 6 0RF ibuprofen 800 mg tablet 800 mg PO Q8H PRN (Reason: pain) Qty: 20 0RF Medrol (Mak) 4 mg tablets,dose pack See Rx Instructions .ROUTE .COMPLEX Qty: 21 0RF Rx Instructions: orally per package directions Discharge Orders: Discharge ED (Routine); Ordered 10/28/22 Ordered By: Delvis Adams Referrals: Tawana Hodges, [employer] SUPERVISOR-C [Primary Care Provider] - Discharge Diet: Usual diet Discharge Activity: Increase activity as tolerated Patient Instructions: Migraine Headache (ED) Activity Restrictions/Additional Instructions: Home and rest. Drink plenty of fluids. Follow-up with primary care for further instructions. Return to ED for new concerns. Coding Level of Care Code ED Supervisor [employer] for Johnnie Ernst
[2022-10-28] MEDS: sodium chloride 0.9% 500 ML 999 ML IV (22:01)
[2022-10-28] MEDS: metoclopramide 5 mg/mL SDV 2 mL 10 MG IVP (22:03)
[2022-10-28] MEDS: dexamethasone 10 mg/mL INJ IVP (22:05)
[2022-10-28] MEDS: ketorolac 30 mg/mL INJ 15 MG IVP (22:05)
[2022-10-28 22:41] LABS: Basophils # 0.1 10^3/uL (0.0-0.1); Basophils % 0.6 %; Eosinophils # 0.3 10^3/uL (0.0-0.8); Eosinophils % 3.4 %; Hemoglobin 15.3 g/dL (11.7-16.6); Lymphocytes # 3.2 10^3/uL (0.8-4.8); Lymphocytes % 39.8 %; Mean Corpuscular HGB Conc 33.3 g/dL (30.0-36.0); Mean Corpuscular Hemoglobin 30.4 pg (28.0-34.0); Mean Corpuscular Volume 91.5 fl (80-94); Mean Platelet Volume 9.9 fL (7.4-10.4); Monocytes # 0.8 10^3/uL (0.2-0.9); Monocytes % 9.4 %; Neutrophils # 3.69 10^3/uL (1.8-7.7); Neutrophils % 46.5 %; Nucleated Red Blood Cells % 0 %; Platelet Count 236 10^3/cmm (130-400); Red Blood Count 5.03 10^6/uL (4.1-5.3); Red Cell Distribution Width 11.8 % (12.1-15.1); White Blood Count 7.9 10^3/uL (4.0-10.0)
[2022-10-28 23:00] LABS: Alanine Aminotransferase 27 U/L (0-41); Alkaline Phosphatase 64 U/L (40-130); Aspartate Amino Transferase 18 U/L (0-40); Blood Urea Nitrogen 13 mg/dL (6-20); Calcium 9.2 mg/dL (8.5-10.5); Carbon Dioxide 23 mmol/L (22-29); Chloride 101 mmol/L (98-107); Globulin 2.8 g/dL (1.3-4.6); Glomerular Filtration Rate 97.2 mL/min (90-130); Glucose 211 mg/dL (65-115); Osmolality Calculated 288 mOsm/kg (285-295); Sodium 136 mmol/L (136-145); Total Bilirubin 0.2 mg/dL (0.15-1.2); Total Protein 6.8 g/dL (6.6-8.7)
[2022-10-28 23:19] VITALS: BP 130/71; PULSE 94; RESP 16; O2SAT 96
== END 2022-10-28 23:20 | disposition home or self-care (01) ==
PROVIDERS: Emergency Provider Nurse Practitioner Family; PCP Nurse Practitioner
DX: G43.909 Migraine, unspecified, not intractable, without status migrainosus (principal); F17.210 Nicotine dependence, cigarettes, uncomplicated
CPT/HCPCS: 70450; 80053; 85025; 96361; 96374; 96375; 99285; J1100; J1885; J2765; J7040

== ENCOUNTER 2022-11-07 16:59 | Emergency (ER) | payer MEDICAID, SELFPAY ==
[2022-11-07] VITALS (7 sets, daily range): BP systolic 109–144; BP diastolic 64–82; PULSE 82–97; RESP 14–18; TEMP 36.8; O2SAT 93–98
--- NOTE | 2022-11-07 18:21 | W.ED.BACK ---
HPI - Back Pain/Injury General: Chief Complaint: Back Pain/Injury Stated Complaint: abd pain Time Seen by Provider: 11/07/22 18:21 History of Present Illness: 32-year-old male patient comes in with right flank pain. Patient does have a history of renal calculi and has had surgery on his right kidney before in the past for renal calculi. On exam patient appears nontoxic. Patient appears in mild to moderate pain. No acute distress. Patient has a history of nicotine, cannabis, methamphetamine use disorder. Patient also has a borderline personality disorder. Associated symptoms: Reports vomiting; Deny abdominal pain Review of Systems General: Reports: 10 or more systems reviewed and unremarkable except in HPI and below Card: Denies: chest pain Resp: Denies: dyspnea GI: Reports: vomiting; Denies: abdominal pain : Reports: flank pain Musc: Denies: neck pain Skin/Breast: Denies: rash PFSH ED PFSH: Medical History Psychiatric care Social History Smoking and tobacco status: current every day smoker cigarettes Packs smoked per day: 0.25 Years cigarettes smoked: 20 Quit status (tobacco): has tried quititng Number of times tried to quit tobacco: 5 Second hand smoke exposure: No Physical Exam Const: COMMON NORMALS: no acute distress HENMT: COMMON NORMALS: atraumatic HEAD & SCALP: atraumatic Neck/C-Spine: COMMON NORMALS: full ROM Resp: COMMON NORMALS: normal respiratory effort and clear to auscultation bilaterally AUSCULTATION: clear to auscultation bilaterally Cardio: COMMON NORMALS: regular rate and regular rhythm RATE: regular rate RHYTHM: regular rhythm Back/Pelvis: COMMON NORMALS: thoracic and lumbar spine normal to inspection Extremity: COMMON NORMALS: normal to inspection Skin: COMMON NORMALS: turgor normal GENERAL SKIN EXAM: turgor normal Course Vital Signs: Vital signs: Vital Signs Temperature 98.2 F 11/07/22 17:13 Pulse Rate 82 11/07/22 20:30 Respiratory Rate 14 11/07/22 20:30 Blood Pressure 134/70 11/07/22 20:30 Pulse Oximetry 95 11/07/22 20:30 Oxygen Delivery Me thod 11/07/22 18:55 MDM - Back Pain/Injury Medical Decision Making 32-year-old male patient comes in today with right flank pain. Patient does have a history of renal stones. Patient also only has 1 functioning kidney. On exam patient appears nontoxic. Patient appears in no acute distress. Patient reports right-sided flank pain radiating to the groin. Differential diagnosis includes not limited to renal colic, urinary tract infection, malingering. CT of the abdomen pelvis noted no acute abnormality. CBC, CMP, and urinalysis were unremarkable. Patient's pain was brought under control with medications and fluids. Patient was recommended to follow-up with primary care for further instruction and treatment of musculoskeletal back pain Labs 11/07/22 18:30 11/07/22 18:30 Radiology Impressions Abdomen/Pelvis CT 11/07/22 18: IMPRESSION: 1. No acute findings. 2. Fatty liver. Laboratory Results WBC 8.1 10^3/uL (4.0-10.0) 11/07/22 18: RBC 5.08 10^6/uL (4.1-5.3) 11/07/22 18:30 Hgb 15.6 g/dL (11.7-16.6) 11/07/22 18:30 Hct 47.3 % (42.0-52.0) 11/07/22 18:30 MCV 93.1 fl (80-94) 11/07/22 18:30 MCH 30.7 pg (28.0-34.0) 11/07/22 18:30 MCHC 33.0 g/dL (30.0-36.0) 11/07/22 18:30 RDW 11.9 % (12.1-15.1) L 11/07/22 18:30 Plt Count 244 10^3/cmm (130-400) 11/07/22 18:30 MPV 9.2 fL (7.4-10.4) 11/07/22 18:30 Neut % (Auto) 45.1 % 11/07/22 18:30 Lymph % (Auto) 39.2 % 11/07/22 18:30 [place] % (Auto) 10.9 % 11/07/22 18:30 Eos % (Auto) 3.8 % 11/07/22 18:30 Baso % (Auto) 0.6 % 11/07/22 18:30 Neut # (Auto) 3.64 10^3/uL (1.8-7.7) 11/07/22 18: Lymph # (Auto) 3.2 10^3/uL (0.8-4.8) 11/07/22 18:30 [place] # (Auto) 0.9 10^3/uL (0.2-0.9) 11/07/22 18: Eos # (Auto) 0.3 10^3/uL (0.0-0.8) 11/07/22 18: Baso # (Auto) 0.1 10^3/uL (0.0-0.1) 11/07/22 18: Nucleated RBC % (auto) 0 % 11/07/22: Nucleated RBCs # 0.0 /100WBC 11/07/22 18:30 Sodium 136 mmol/L (136-145) 11/07/22 18: Potassium 4.0 mmol/L (3.5-5.1) 11/07/22 18: Chloride 98 mmol/L (98-107) 11/07/22 18: Carbon Dioxide 28 mmol/L (22-29) 11/07/22 18: Anion Gap 14.0 (5-19) 11/07/22 18: BUN 17 mg/dL (6-20) 11/07/22 18: Creatinine 1.0 mg/dL (0.7-1.2) 11/07/22 18: GFR Calculation 86.1 mL/min (90-130) L 11/07/22 18: Glucose 141 mg/dL (65-115) H 11/07/22 18: Calculated Osmolality 286 mOsm/kg (285-295) 11/07/22 18: Calcium 9.4 mg/dL (8.5-10.5) 11/07/22 18: Total Bilirubin 0.2 mg/dL (0.15-1.2) 11/07/22 18: AST 28 U/L (0-40) 11/07/22 18:30 ALT 48 U/L (0-41) H 11/07/22 18: Alkaline Phosphatase 75 U/L (40-130) 11/07/22 18: Total Protein 6.9 g/dL (6.6-8.7) 11/07/22 18:30 Albumin 4.1 g/dL (3.5-5.2) 11/07/22 18:30 Globulin 2.8 g/dL (1.3-4.6) 11/07/22 18:30 Urine Color Yellow (Yellow) 11/07/22 19:50 Urine Appearance Clear (CLEAR) 11/07/22 19:50 Urine pH 7 (5-7) 11/07/22 19:50 Ur Specific [place] 1.010 (1.005-1.030) 11/07/22 19:50 Urine Protein Neg (Negative) 11/07/22 19:50 Urine Glucose (UA) Norm (Normal) 11/07/22 19:50 Urine Ketones Negative (Negative) 11/07/22 19:50 Urine Blood Neg (Negative) 11/07/22 19:50 Urine Nitrate Negative (Negative) 11/07/22 19:50 Urine Bilirubin Neg (Negative) 11/07/22 19:50 Urine Urobilinogen Norm mg/dL (Negative) 11/07/22 19:50 Ur Leukocyte Esterase Negative (Negative) 11/07/22 19:50 Discharge Plan Discharge Patient Disposition: Home Clinical Impression: Back pain Qualifiers: Back pain location: low back pain Chronicity: unspecified Back pain laterality: right Sciatica presence: without sciatica Qualified Code(s): M54.50 - Low back pain, unspecified Condition: Stable Prescriptions: Continued ibuprofen 800 mg tablet 800 mg PO Q8H PRN (Reason: pain) Qty: 30 0RF Discontinued naproxen [Naprosyn] 500 mg tablet 500 mg PO BID PRN (Reason: pain) Qty: 20 0RF No Action bupropion HCl [Wellbutrin XL] 150 mg tablet extended release 24 hr 150 mg PO QAM Qty: 30 2RF buspirone 10 mg tablet 10 mg PO TID Qty: 90 2RF quetiapine [Seroquel] 100 mg tablet 100 mg PO .HS Qty: 30 2RF hydrocodone-acetaminophen 5-325 mg tablet 1 tab PO Q8H PRN (Reason: pain (scale score 7-10)) Qty: 6 0RF Medrol (Mak) 4 mg tablets,dose pack See Rx Instructions .ROUTE .COMPLEX Qty: 21 0RF Rx Instructions: orally per package directions Discharge Orders: Discharge ED (Routine); Ordered 11/07/22 Ordered By: Delvis Adams Referrals: Tawana Hodges, INFRASTRUCTURE SOLUTIONS ARCHITECT-C [Primary Care Provider] - Discharge Diet: Usual diet Discharge Activity: Increase activity as tolerated Patient Instructions: Back Pain (ED) Activity Restrictions/Additional Instructions: Drink plenty of water with medications. Use acetaminophen and/or ibuprofen for pain. Follow-up with primary care for further instructions. Return to ED for worsening symptoms such as high fever greater than 100.4, inability to hold fluids down, or new concerns. Coding Level of Care Code ED Char Filter Tank Tender Head for Johnnie Ernst
--- NOTE | 2022-11-07 18:27 | CTR_ITS ---
PROCEDURE INFORMATION: Exam: CT Abdomen And Pelvis Without Contrast Exam date and time: 11/07/2022 8:16 PM Age: 32 years old Clinical indication: Pain; Other: Flank; Prior surgery; Surgery date: 6+ months; Surgery type: Gb, appx; Additional info: Right flank pain TECHNIQUE: Imaging protocol: Computed tomography of the abdomen and pelvis without contrast. Radiation optimization: All CT scans at this facility use at least one of these dose optimization techniques: automated exposure control; mA and/or kV adjustment per patient size (includes targeted exams where dose is matched to clinical indication); or iterative reconstruction. REPORTING DATA: Count of CT and Cardiac NM exams in prior 12 months: This patient has received 3 known CTs and 0 known cardiac nuclear medicine studies in the 12 months prior to the current study. COMPARISON: CT angio chest w abd pel w con 03/20/2020 1:24 AM RADIATION DOSE METRICS: Total DLP (mGy-cm): 1599.33 FINDINGS: Liver: Diffuse fatty infiltration of the liver. Gallbladder and bile ducts: Cholecystectomy. The bile ducts are normal. Pancreas: Normal. No ductal dilation. Spleen: Normal. No splenomegaly. Adrenal glands: Normal. No mass. Kidneys and ureters: Chronic atrophy or hypoplasia a of the left kidney. Right kidney is normal. No calculus or hydronephrosis. Old right nephrostomy tract. Stomach and bowel: Unremarkable. No obstruction. No mucosal thickening. Appendix: The appendix is visualized and is normal. Intraperitoneal space: Unremarkable. No free air. No significant fluid collection. Vasculature: Unremarkable. No abdominal aortic aneurysm. Lymph nodes: Unremarkable. No enlarged lymph nodes. Urinary bladder: Unremarkable as visualized. Reproductive: Unremarkable as visualized. Bones/joints: Degenerative changes of the spine. No acute fracture. Soft tissues: Mild body wall edema in the flank and buttock regions. CT/CT kidney stone [id number] IMPRESSION: 1. No acute findings. 2. Fatty liver.
[2022-11-07] MEDS: ketorolac 30 mg/mL INJ 15 MG IVP (18:39)
[2022-11-07] MEDS: ondansetron 2 mg/ML SDV 2 mL 4 MG IVP (18:40)
[2022-11-07 19:07] LABS: Basophils # 0.1 10^3/uL (0.0-0.1); Basophils % 0.6 %; Eosinophils # 0.3 10^3/uL (0.0-0.8); Eosinophils % 3.8 %; Hematocrit 47.3 % (42.0-52.0); Hemoglobin 15.6 g/dL (11.7-16.6); Lymphocytes # 3.2 10^3/uL (0.8-4.8); Lymphocytes % 39.2 %; Mean Corpuscular Hemoglobin 30.7 pg (28.0-34.0); Mean Corpuscular Volume 93.1 fl (80-94); Mean Platelet Volume 9.2 fL (7.4-10.4); Monocytes # 0.9 10^3/uL (0.2-0.9); Monocytes % 10.9 %; Neutrophils # 3.64 10^3/uL (1.8-7.7); Neutrophils % 45.1 %; Nucleated Red Blood Cells % 0 %; Platelet Count 244 10^3/cmm (130-400); Red Blood Count 5.08 10^6/uL (4.1-5.3); Red Cell Distribution Width 11.9 % (12.1-15.1); White Blood Count 8.1 10^3/uL (4.0-10.0)
[2022-11-07 19:39] LABS: Alanine Aminotransferase 48 U/L (0-41); Albumin Level 4.1 g/dL (3.5-5.2); Alkaline Phosphatase 75 U/L (40-130); Aspartate Amino Transferase 28 U/L (0-40); Blood Urea Nitrogen 17 mg/dL (6-20); Calcium 9.4 mg/dL (8.5-10.5); Carbon Dioxide 28 mmol/L (22-29); Chloride 98 mmol/L (98-107); Globulin 2.8 g/dL (1.3-4.6); Glomerular Filtration Rate 86.1 mL/min (90-130); Glucose 141 mg/dL (65-115); Osmolality Calculated 286 mOsm/kg (285-295); Sodium 136 mmol/L (136-145); Total Bilirubin 0.2 mg/dL (0.15-1.2); Total Protein 6.9 g/dL (6.6-8.7)
[2022-11-07] MEDS: morphine 4 mg/mL SDV 1 mL IVP (19:53)
[2022-11-07 20:02] LABS: Add Urine Microscopic? NO; Charge for UA Resulting for Rev
[2022-11-07 20:09] LABS: Bilirubin Urine Neg (Negative); Blood Urine Neg (Negative); Glucose Urine UA Norm (Normal); Ketones Urine Negative (Negative); Leukocyte Esterase Urine Negative (Negative); Nitrate Urine Negative (Negative); Protein Urine Neg (Negative); Urine Appearance Clear (CLEAR); Urine Color Yellow (Yellow); Urobilinogen Urine Norm (Negative); pH Urine 7 (5-7)
== END 2022-11-07 21:01 | disposition home or self-care (01) ==
PROVIDERS: Emergency Provider Nurse Practitioner Family; PCP Nurse Practitioner
DX: M54.50 Low back pain, unspecified (principal); F17.210 Nicotine dependence, cigarettes, uncomplicated
CPT/HCPCS: 74176; 80053; 81003; 85025; 96374; 96375; 99285; J1885; J2270; J2405

== ENCOUNTER → 2022-11-13 13:57 | Outpatient (BNVA) | payer MEDICAID, SELFPAY | PROVIDERS: PCP Nurse Practitioner; Visit Provider Nurse Practitioner | DX: J02.9 Acute pharyngitis, unspecified (principal) | CPT/HCPCS: 87880 ==

== ENCOUNTER 2022-11-20 12:57 | Emergency (ER) | payer MEDICAID, SELFPAY ==
[2022-11-20 12:58] VITALS: BP 168/106; PULSE 96; RESP 20; TEMP 37.1; O2SAT 98; BMI 40.7
--- NOTE | 2022-11-20 13:39 | ED_ITS ---
HPI - Back Pain/Injury General: Chief Complaint: Back Pain/Injury Stated Complaint: lower back pain Time Seen by Provider: 11/20/22 13:30 Source: patient Mode of arrival: ambulatory Limitations: no limitations History of Present Illness: Patient is a 32-year-old male who presents to ED today with complaint of back pain that began earlier today. Patient states he had been doing some lifting and stretching of his back. He states he has a history of kidney problems but is unable to elaborate on this much. He does state he has had kidney stones in the past and at some point had surgery to one of his kidneys. Again patient does not seem to be able to provide much history on this. He is not having any dysuria, frequency, urgency, hematuria. No fevers or chills. No nausea or vomiting. Pain does not seem to radiate down into his buttocks or his lower extremities. He denies numbness, tingling, loss of sensation to the legs. No saddle anesthesia or bowel or bladder dysfunction. MD elicited complaint: back pain Pertinent past history: kidney stones Onset (ago): hour(s) Timing: constant Severity: moderate Similar Symptoms Previously: No Location: lumbar spine, thoracic spine, right lower back, right upper back, left upper back and left lower back Radiation: none Exacerbating factors: none Relieving factors: none Associated symptoms: Reports no associated symptoms; Deny abdominal pain, chills, difficulty walking, dysuria, fatigue, fever(s) or urinary urgency Work related injury: No Review of Systems Const: Denies: fever(s), chills, body aches, fatigue or malaise Card: Denies: chest pain Resp: Denies: dyspnea GI: Denies: abdominal pain : Reports: flank pain; Denies: difficulty urinating, dysuria, urinary frequency, urinary urgency or urinary hesitancy Musc: Reports: back pain; Denies: neck pain, extremity pain, extremity swelling, joint pain or joint swelling Skin/Breast: Denies: rash Neuro: Denies: headache(s), numbness in extremities, weakness in extremities, sensory changes or difficulty walking [facility] ED PFSH: Medical History Psychiatric care Social History Smoking and tobacco status: current every day smoker cigarettes Packs smoked per day: 0.25 Years cigarettes smoked: 20 Quit status (tobacco): has tried quititng Number of times tried to quit tobacco: 5 Second hand smoke exposure: No Physical Exam Const: COMMON NORMALS: no acute distress, average body habitus, patient oriented x3, no limitations and alert GENERAL APPEARANCE: cooperative NUT RITIONAL APPEARANCE: obese morbidly obese ORIENTATION/CONSCIOUSNESS: Yes awake, Yes oriented to person, Yes oriented to place and Yes oriented to time HENMT: COMMON NORMALS: normocephalic and atraumatic HEAD & SCALP: normal to inspection, normocephalic and atraumatic Neck/C-Spine: COMMON NORMALS: full ROM, no lymphadenopathy and no meningeal signs Resp: COMMON NORMALS: normal respiratory effort and clear to auscultation bilaterally AUSCULTATION: clear to auscultation bilaterally Cardio: COMMON NORMALS: regular rate and regular rhythm RATE: regular rate RHYTHM: regular rhythm GI: COMMON NORMALS: Normal to inspection, nondistended, normoactive bowel sounds present, Soft to palpation, non-tender, No hepatosplenomegaly present and no masses PALPATION: Yes Soft to palpation and Yes No hepatosplenomegaly present : BLADDER/KIDNEY EXAM: Yes CVA tenderness (patient tender throughout bilateral thoracic/lumbar musculature ) Back/Pelvis: GENERAL BACK: Yes CVA tenderness (patient tender throughout bilateral thoracic/lumbar musculature ) THORACIC SPINE/UPPER BACK: Yes normal to inspection, Yes pain with ROM, No thoracic spinal tenderness, Yes paraspinal muscle tenderness and No paraspinal muscle spasm LUMBAR SPINE/LOWER BACK: Yes normal to inspection, Yes pain with ROM, No lumbar spinal tenderness, Yes paraspinal muscle tenderness, No paraspinal muscle spasm, No mass present and Yes straight leg raise negative bilaterally PELVIS: Yes buttocks normal SACROILIAC JOINTS: Yes SI joints normal SACRUM: no tenderness COCCYX: no tenderness BACK IMAGE (MALE): 1. 2. TTP Extremity: COMMON NORMALS: normal to inspection, full ROM, capillary refill normal, no joint enlargement, no clubbing, cyanosis or edema, no calf tenderness and no pedal edema GENERAL: Yes normal exam except as noted Neuro: COMMON NORMALS: patient oriented x3, moves all extremities, no focal motor deficits, no sensory deficits noted and gait normal SENSORIUM/ORIENTATION: Yes alert, Yes oriented to person, Yes oriented to place and Yes oriented to time MENINGEAL SIGNS: Yes no meningeal signs MOTOR EXAM: 5/5 motor strength present throughout Skin: COMMON NORMALS: no rashes or lesions noted GENERAL SKIN EXAM: no rashes or lesions noted Course Vital Signs: Vital signs: Vital Signs Temperature 98.8 F 11/20/22 12:58 Pulse Rate 88 11/20/22 15:58 Respiratory Rate 16 11/20/22 15:58 Blood Pressure 168/106 11/20/22 12:58 Pulse Oximetry 96 11/20/22 15:58 Oxygen Delivery Me thod 11/20/22 12:58 MDM - Back Pain/Injury Medical Decision Making Labs including CBC/CMP are unremarkable. UA w/o blood or infection. Patient was placed on meds for possible musculoskeletal etiology. Return to ED precautions given. Labs 11/20/22 14:30 11/20/22 14:30 Laboratory Results WBC 7.2 10^3/uL (4.0-10.0) 11/20/22 14:30 RBC 4.84 10^6/uL (4.1-5.3) 11/20/22 14:30 Hgb 14.7 g/dL (11.7-16.6) 11/20/22 14:30 Hct 44.7 % (42.0-52.0) 11/20/22 14:30 MCV 92.4 fl (80-94) 11/20/22 14:30 MCH 30.4 pg (28.0-34.0) 11/20/22 14:30 MCHC 32.9 g/dL (30.0-36.0) 11/20/22 14:30 RDW 11.7 % (12.1-15.1) L 11/20/22 14:30 Plt Count 233 10^3/cmm (130-400) 11/20/22 14:30 MPV 9.0 fL (7.4-10.4) 11/20/22 14:30 Neut % (Auto) 44.4 % 11/20/22 14:30 Lymph % (Auto) 40.3 % 11/20/22 14:30 [place] % (Auto) 9.4 % 11/20/22 14:30 Eos % (Auto) 4.6 % 11/20/22 14:30 Baso % (Auto) 0.7 % 11/20/22 14:30 Neut # (Auto) 3.20 10^3/uL (1.8-7.7) 11/20/22 14:30 Lymph # (Auto) 2.9 10^3/uL (0.8-4.8) 11/20/22 14:30 [place] # (Auto) 0.7 10^3/uL (0.2-0.9) 11/20/22 14:30 Eos # (Auto) 0.3 10^3/uL (0.0-0.8) 11/20/22 14:30 Baso # (Auto) 0.1 10^3/uL (0.0-0.1) 11/20/22 14:30 Nucleated RBC % (auto) 0 % 11/20/22 14:30 Nucleated RBCs # 0.0 /100WBC 11/20/22 14:30 Sodium 139 mmol/L (136-145) 11/20/22 14:30 Potassium 4.2 mmol/L (3.5-5.1) 11/20/22 14:30 Chloride 103 mmol/L (98-107) 11/20/22 14:30 Carbon Dioxide 27 mmol/L (22-29) 11/20/22 14:30 Anion Gap 13.2 (5-19) 11/20/22 14:30 BUN 20 mg/dL (6-20) 11/20/22 14:30 Creatinine 1.0 mg/dL (0.7-1.2) 11/20/22 14:30 GFR Calculation 86.1 mL/min (90-130) L 11/20/22 14:30 Glucose 153 mg/dL (65-115) H 11/20/22 14:30 Calculated Osmolality 294 mOsm/kg (285-295) 11/20/22 14:30 Calcium 9.4 mg/dL (8.5-10.5) 11/20/22 14:30 Total Bilirubin 0.2 mg/dL (0.15-1.2) 11/20/22 14:30 AST 33 U/L (0-40) 11/20/22 14:30 ALT 48 U/L (0-41) H 11/20/22 14:30 Alkaline Phosphatase 77 U/L (40-130) 11/20/22 14:30 Total Protein 6.5 g/dL (6.6-8.7) L 11/20/22 14:30 Albumin 3.9 g/dL (3.5-5.2) 11/20/22 14:30 Globulin 2.6 g/dL (1.3-4.6) 11/20/22 14:30 Urine Color Light yellow (Yellow) 11/20/22 14:35 Urine Appearance Clear (CLEAR) 11/20/22 14:35 Urine pH 6.5 (5-7) 11/20/22 14:35 Ur Specific [place] 1.020 (1.005-1.030) 11/20/22 14:35 Urine Protein Neg (Negative) 11/20/22 14:35 Urine Glucose (UA) Norm (Normal) 11/20/22 14:35 Urine Ketones Negative (Negative) 11/20/22 14:35 Urine Blood Neg (Negative) 11/20/22 14:35 Urine Nitrate Negative (Negative) 11/20/22 14:35 Urine Bilirubin Neg (Negative) 11/20/22 14:35 Urine Urobilinogen Norm mg/dL (Negative) 11/20/22 14:35 Ur Leukocyte Esterase Negative (Negative) 11/20/22 14:35 Discharge Plan Discharge Patient Disposition: Home Clinical Impression: Back strain Qualifiers: Encounter type: initial encounter Qualified Code(s): S39.012A - Strain of muscle, fascia and tendon of lower back, initial encounter Condition: Stable Prescriptions: New cyclobenzaprine 10 mg tablet 10 mg PO TID Qty: 14 0RF Medrol (Mak) 4 mg tablets,dose pack See Rx Instructions .ROUTE .COMPLEX Qty: 21 0RF Rx Instructions: orally per package directions Continued ibuprofen 800 mg tablet 800 mg PO Q8H PRN (Reason: pain) Qty: 30 0RF No Action bupropion HCl [Wellbutrin XL] 150 mg tablet extended release 24 hr 150 mg PO QAM Qty: 30 2RF buspirone 10 mg tablet 10 mg PO TID Qty: 90 2RF quetiapine [Seroquel] 100 mg tablet 100 mg PO .HS Qty: 30 2RF hydrocodone-acetaminophen 5-325 mg tablet 1 tab PO Q8H PRN (Reason: pain (scale score 7-10)) Qty: 6 0RF Discharge Orders: Discharge ED (Routine); Ordered 11/20/22 Ordered By: Denisse Zuñiga Referrals: Kit Moser MD [Primary Care Provider] - Coding Level of Care Code ED Mud Jack Nozzleman for Johnnie Ernst
[2022-11-20] MEDS: ketorolac 60 mg/2 mL INJ IM (14:14)
[2022-11-20] MEDS: orphenadrine 30 mg/mL Inj 2 mL 60 MG IM (14:14)
[2022-11-20 14:39] LABS: Basophils # 0.1 10^3/uL (0.0-0.1); Basophils % 0.7 %; Eosinophils # 0.3 10^3/uL (0.0-0.8); Eosinophils % 4.6 %; Hematocrit 44.7 % (42.0-52.0); Hemoglobin 14.7 g/dL (11.7-16.6); Lymphocytes # 2.9 10^3/uL (0.8-4.8); Lymphocytes % 40.3 %; Mean Corpuscular HGB Conc 32.9 g/dL (30.0-36.0); Mean Corpuscular Hemoglobin 30.4 pg (28.0-34.0); Mean Corpuscular Volume 92.4 fl (80-94); Monocytes # 0.7 10^3/uL (0.2-0.9); Monocytes % 9.4 %; Neutrophils % 44.4 %; Nucleated Red Blood Cells % 0 %; Platelet Count 233 10^3/cmm (130-400); Red Blood Count 4.84 10^6/uL (4.1-5.3); Red Cell Distribution Width 11.7 % (12.1-15.1); White Blood Count 7.2 10^3/uL (4.0-10.0)
[2022-11-20 14:49] LABS: Add Urine Microscopic? NO; Charge for UA Resulting for Rev
[2022-11-20 14:51] LABS: Urine Appearance Clear (CLEAR); Urine Color Light yellow (Yellow)
[2022-11-20 14:52] LABS: Bilirubin Urine Neg (Negative); Blood Urine Neg (Negative); Glucose Urine UA Norm (Normal); Ketones Urine Negative (Negative); Leukocyte Esterase Urine Negative (Negative); Nitrate Urine Negative (Negative); Protein Urine Neg (Negative); Urobilinogen Urine Norm (Negative); pH Urine 6.5 (5-7)
[2022-11-20 15:00] LABS: Alanine Aminotransferase 48 U/L (0-41); Albumin Level 3.9 g/dL (3.5-5.2); Alkaline Phosphatase 77 U/L (40-130); Anion Gap 13.2 (5-19); Aspartate Amino Transferase 33 U/L (0-40); Blood Urea Nitrogen 20 mg/dL (6-20); Calcium 9.4 mg/dL (8.5-10.5); Carbon Dioxide 27 mmol/L (22-29); Chloride 103 mmol/L (98-107); Globulin 2.6 g/dL (1.3-4.6); Glomerular Filtration Rate 86.1 mL/min (90-130); Glucose 153 mg/dL (65-115); Osmolality Calculated 294 mOsm/kg (285-295); Potassium 4.2 mmol/L (3.5-5.1); Sodium 139 mmol/L (136-145); Total Bilirubin 0.2 mg/dL (0.15-1.2); Total Protein 6.5 g/dL (6.6-8.7)
[2022-11-20] MEDS: morphine 4 mg/mL SDV 1 mL IM (15:08)
[2022-11-20 15:58] VITALS: PULSE 88; RESP 16; O2SAT 96
== END 2022-11-20 15:59 | disposition home or self-care (01) ==
PROVIDERS: Emergency Provider Physician Assistant; PCP Internal Medicine
DX: S39.012A Strain of muscle, fascia and tendon of lower back, initial encounter (principal); F17.210 Nicotine dependence, cigarettes, uncomplicated; X50.0XXA Overexertion from strenuous movement or load, initial encounter
CPT/HCPCS: 36415; 80053; 81003; 85025; 96372; 99284; J1885; J2270; J2360

== ENCOUNTER 2023-02-20 16:48 | Emergency (ER) | payer MEDICAID, SELFPAY ==
[2023-02-20 16:56] VITALS: BP 128/77; PULSE 97; RESP 17; TEMP 37.1; O2SAT 97; BMI 47.1
[2023-02-20 18:08] VITALS: BP 137/112; PULSE 95; RESP 18; O2SAT 96
--- NOTE | 2023-02-20 18:10 | CTR_ITS ---
PROCEDURE INFORMATION: Exam: CT Abdomen And Pelvis Without Contrast Exam date and time: 02/20/2023 6:17 PM Age: 32 years old Clinical indication: Abdominal pain; Flank; Left; Prior surgery; Surgery date: 6+ months; Surgery type: Appy, sascha; Additional info: Left flank pain TECHNIQUE: Imaging protocol: Computed tomography of the abdomen and pelvis without contrast. Radiation optimization: All CT scans at this facility use at least one of these dose optimization techniques: automated exposure control; mA and/or kV adjustment per patient size (includes targeted exams where dose is matched to clinical indication); or iterative reconstruction. REPORTING DATA: Count of CT and Cardiac NM exams in prior 12 months: This patient has received 4 known CTs and 0 known cardiac nuclear medicine studies in the 12 months prior to the current study. COMPARISON: CT kidney stone [id number] 11/07/2022 8:16 PM RADIATION DOSE METRICS: Total DLP (mGy-cm): 1414 FINDINGS: Liver: The liver is diffusely decreased in density, compatible with hepatic steatosis. No discrete mass lesion identified. Gallbladder and bile ducts: The gallbladder has been surgically removed. Pancreas: Normal. No ductal dilation. Spleen: Normal. No splenomegaly. Adrenal glands: Normal. No mass. Kidneys and ureters: The left kidney is atrophic. The right kidney is unremarkable. Stomach and bowel: Unremarkable. No obstruction. No mucosal thickening. Appendix: No evidence of appendicitis. Intraperitoneal space: Unremarkable. No free air. No significant fluid collection. Vasculature: Unremarkable. No abdominal aortic aneurysm. Lymph nodes: Unremarkable. No enlarged lymph nodes. Urinary bladder: Unremarkable as visualized. Reproductive: Unremarkable as visualized. Bones/joints: Degenerative changes of the spine seen. Soft tissues: Unremarkable. CT/CT kidney stone [id number] IMPRESSION: No acute intra-abdominal or intrapelvic pathology.
--- NOTE | 2023-02-20 18:10 | W.ED.MALEGU ---
HPI - Male Genitourinary General: Chief complaint: Urogenital-Male Stated complaint: blood in urine/ low back pian Time Seen by Provider: 02/20/23 18:04 Source: patient Mode of arrival: ambulatory Limitations: no limitations History of Present Illness: 32-year-old male states this morning he started having some left-sided flank pain that is rating to his groin he states pain is very severe in nature he rates it an 8 out of 10 he states he is also having hematuria. He had nausea and vomiting along with some diarrhea. He denies any worsening proving factors states the pain is been constant. Associated symptoms: Deny nausea or vomiting Review of Systems Const: Denies: fever(s) or chills ENMT: Denies: throat pain or dental pain Card: Denies: chest pain Resp: Denies: dyspnea GI: Denies: abdominal pain, nausea or vomiting Musc: Denies: neck pain or back pain Skin/Breast: Denies: rash Neuro: Denies: headache(s) PFS ED PFSH: Medical History Psychiatric care Social History Smoking and tobacco status: current every day smoker cigarettes Packs smoked per day: 0.25 Years cigarettes smoked: 20 Quit status (tobacco): has tried quititng Number of times tried to quit tobacco: 5 Second hand smoke exposure: No Physical Exam Const: COMMON NORMALS: no acute distress and patient oriented x3 HENMT: COMMON NORMALS: normocephalic and atraumatic HEAD & SCALP: normocephalic and atraumatic Neck/C-Spine: COMMON NORMALS: full ROM and supple Chest: COMMONS NORMALS: normal inspection of the chest and normal palpation of entire chest wall Resp: COMMON NORMALS: normal respiratory effort, No retractions, No use of accessory muscles and clear to auscultation bilaterally AUSCULTATION: clear to auscultation bilaterally Cardio: COMMON NORMALS: regular rate, regular rhythm and No murmurs present (Cardio) RATE: regular rate RHYTHM: regular rhythm GI: COMMON NORMALS: Normal to inspection, nondistended, normoactive bowel sounds present, Soft to palpation, non-tender and no masses PALPATION: Yes Soft to palpation Extremity: COMMON NORMALS: normal to inspection and full ROM Neuro: COMMON NORMALS: patient oriented x3, moves all extremities and no focal motor deficits Psych: COMMON NORMALS: mental status grossly normal, Normal thought process present and cooperative THOUGHT PROCESS: Normal thought process present Skin: COMMON NORMALS: no rashes or lesions noted and no wounds GENERAL SKIN EXAM: no rashes or lesions noted Course Vital Signs: Vital signs: Vital Signs Temperature 98.7 F 02/20/23 16:56 Pulse Rate 85 02/20/23 19:11 Respiratory Rate 18 02/20/23 19:11 Blood Pressure 124/68 02/20/23 19:11 Pulse Oximetry 92 02/20/23 19:11 Oxygen Delivery Me thod Room Air 02/20/23 18:08 MDM - Male Medical Decision Making Patient presents here with hematuria along with some flank pain he is well-appearing here he does have hematuria blood work CT here are normal his pain is much improved we will place him on pain meds we will write him antibiotics in case he has an infection he needs to follow-up with urology return if worsening. Medical Records I reviewed the patient's medical records. Lab Data I reviewed the patient's lab results. 02/20/23 18:14 02/20/23 18:14 Radiology Impressions Abdomen/Pelvis CT 02/20/23 18:10 IMPRESSION: No acute intra-abdominal or intrapelvic pathology. Laboratory Results WBC 6.9 10^3/uL (4.0-10.0) 02/20/23 18:14 RBC 5.21 10^6/uL (4.1-5.3) 02/20/23 18:14 Hgb 15.7 g/dL (11.7-16.6) 02/20/23 18:14 Hct 48.0 % (42.0-52.0) 02/20/23 18:14 MCV 92.1 fl (80-94) 02/20/23 18:14 MCH 30.1 pg (28.0-34.0) 02/20/23 18:14 MCHC 32.7 g/dL (30.0-36.0) 02/20/23 18:14 RDW 11.9 % (12.1-15.1) L 02/20/23 18:14 Plt Count 211 10^3/cmm (130-400) 02/20/23 18:14 MPV 9.3 fL (7.4-10.4) 02/20/23 18:14 Neut % (Auto) 54.6 % 02/20/23 18:14 Lymph % (Auto) 37.6 % 02/20/23 18:14 [place] % (Auto) 4.9 % 02/20/23 18:14 Eos % (Auto) 1.9 % 02/20/23 18:14 Baso % (Auto) 0.6 % 02/20/23 18:14 Neut # (Auto) 3.77 10^3/uL (1.8-7.7) 02/20/23 18:14 Lymph # (Auto) 2.6 10^3/uL (0.8-4.8) 02/20/23 18:14 [place] # (Auto) 0.3 10^3/uL (0.2-0.9) 02/20/23 18:14 Eos # (Auto) 0.1 10^3/uL (0.0-0.8) 02/20/23 18:14 Baso # (Auto) 0.0 10^3/uL (0.0-0.1) 02/20/23 18:14 Nucleated RBC % (auto) 0 % 02/20/23 18:14 Nucleated RBCs # 0.0 /100WBC 02/20/23 18:14 Sodium 139 mmol/L (136-145) 02/20/23 18:14 Potassium 4.0 mmol/L (3.5-5.1) 02/20/23 18:14 Chloride 107 mmol/L (98-107) 02/20/23 18:14 Carbon Dioxide 23 mmol/L (22-29) 02/20/23 18:14 Anion Gap 13.0 (5-19) 02/20/23 18:14 BUN 14 mg/dL (6-20) 02/20/23 18:14 Creatinine 1.1 mg/dL (0.7-1.2) 02/20/23 18:14 GFR Calculation 77.1 mL/min (90-130) L 02/20/23 18:14 Glucose 175 mg/dL (65-115) H 02/20/23 18:14 Calculated Osmolality 293 mOsm/kg (285-295) 02/20/23 18:14 Calcium 8.7 mg/dL (8.5-10.5) 02/20/23 18:14 Total Bilirubin 0.2 mg/dL (0.15-1.2) 02/20/23 18:14 AST 36 U/L (0-40) 02/20/23 18:14 ALT 78 U/L (0-41) H 02/20/23 18:14 Alkaline Phosphatase 63 U/L (40-130) 02/20/23 18:14 Total Protein 6.6 g/dL (6.6-8.7) 02/20/23 18:14 Albumin 4.1 g/dL (3.5-5.2) 02/20/23 18:14 Globulin 2.5 g/dL (1.3-4.6) 02/20/23 18:14 Lipase 59 U/L (13-60) 02/20/23 18:14 Urine Color Yellow (Yellow) 02/20/23 17:12 Urine Appearance Cloudy (CLEAR) A 02/20/23 17:12 Urine pH 5 (5-7) 02/20/23 17:12 Ur Specific [place] 1.025 (1.005-1.030) 02/20/23 17:12 Urine Protein Neg (Negative) 02/20/23 17:12 Urine Glucose (UA) 4+ (Normal) H 02/20/23 17:12 Urine Ketones Negative (Negative) 02/20/23 17:12 Urine Blood 3+ (Negative) H 02/20/23 17:12 Urine Nitrate Negative (Negative) 02/20/23 17:12 Urine Bilirubin Neg (Negative) 02/20/23 17:12 Urine Urobilinogen Norm mg/dL (Negative) 02/20/23 17:12 Ur Leukocyte Esterase Negative (Negative) 02/20/23 17:12 Urine RBC >100 /hpf (0-2) H 02/20/23 17:12 Urine WBC 0-4 /hpf (0-5) H 02/20/23 17:12 Ur Squamous Epith Cells 0-4 /hpf (0-5) H 02/20/23 17:12 Amorphous Sediment Not Reportable 02/20/23 17:12 Urine Bacteria Trace /hpf (NONE) 02/20/23 17:12 Discharge Plan Discharge Patient Disposition: Home Clinical Impression: Abdominal pain, Hematuria Condition: Stable Prescriptions: New hydrocodone-acetaminophen 5-325 mg tablet 1 tab PO Q6H PRN (Reason: pain) Qty: 14 0RF ondansetron 4 mg tablet,disintegrating 4 mg PO Q6H PRN (Reason: nausea and vomiting) Qty: 14 0RF No Action bupropion HCl [Wellbutrin XL] 150 mg tablet extended release 24 hr 150 mg PO QAM Qty: 30 2RF buspirone 10 mg tablet 10 mg PO TID Qty: 90 2RF quetiapine [Seroquel] 100 mg tablet 100 mg PO .HS Qty: 30 2RF cyclobenzaprine 10 mg tablet 10 mg PO TID Qty: 14 0RF Medrol (Mak) 4 mg tablets,dose pack See Rx Instructions .ROUTE .COMPLEX Qty: 21 0RF Rx Instructions: orally per package directions ibuprofen 800 mg tablet 800 mg PO Q8H PRN (Reason: pain) Qty: 30 0RF hydrocodone-acetaminophen 5-325 mg tablet 1 tab PO Q8H PRN (Reason: pain (scale score 7-10)) Qty: 6 0RF Discharge Orders: Discharge ED (Routine); Ordered 02/20/23 Ordered By: Lucia Kate Discharge Diet: Advance as tolerated Discharge Activity: Resume usual activity Patient Instructions: Hematuria (ED), Abdominal Pain (ED), Opioid Safety Coding Level of Care Code ED Systems Testing Laboratory Technician for Johnnie Ernst
[2023-02-20 18:14] LABS: Glucose Urine UA 4+ (Normal); Ketones Urine Negative (Negative); Protein Urine Neg (Negative); Specific Gravity, Urine 1.025 (1.005-1.030); Urine Appearance Cloudy (CLEAR); Urine Color Yellow (Yellow); pH Urine 5 (5-7)
[2023-02-20 18:15] LABS: Bilirubin Urine Neg (Negative); Blood Urine 3+ (Negative); Leukocyte Esterase Urine Negative (Negative); Nitrate Urine Negative (Negative); Urobilinogen Urine Norm (Negative)
[2023-02-20 18:16] LABS: Add Urine Microscopic? YES
[2023-02-20 18:17] LABS: Bacteria Urine TRACE /hpf; RBC Urine >100 /hpf (0-2); Squamous Epithelial Cell Urine 0-4 /hpf (0-5); WBC Urine 0-4 /hpf (0-5)
[2023-02-20 18:18] LABS: Add Urine Culture? Yes
[2023-02-20 18:19] LABS: Basophils % 0.6 %; Eosinophils # 0.1 10^3/uL (0.0-0.8); Eosinophils % 1.9 %; Hemoglobin 15.7 g/dL (11.7-16.6); Lymphocytes # 2.6 10^3/uL (0.8-4.8); Lymphocytes % 37.6 %; Mean Corpuscular HGB Conc 32.7 g/dL (30.0-36.0); Mean Corpuscular Hemoglobin 30.1 pg (28.0-34.0); Mean Corpuscular Volume 92.1 fl (80-94); Mean Platelet Volume 9.3 fL (7.4-10.4); Monocytes # 0.3 10^3/uL (0.2-0.9); Monocytes % 4.9 %; Neutrophils # 3.77 10^3/uL (1.8-7.7); Neutrophils % 54.6 %; Nucleated Red Blood Cells % 0 %; Platelet Count 211 10^3/cmm (130-400); Red Blood Count 5.21 10^6/uL (4.1-5.3); Red Cell Distribution Width 11.9 % (12.1-15.1); White Blood Count 6.9 10^3/uL (4.0-10.0)
[2023-02-20 18:42] LABS: Alanine Aminotransferase 78 U/L (0-41); Albumin Level 4.1 g/dL (3.5-5.2); Alkaline Phosphatase 63 U/L (40-130); Blood Urea Nitrogen 14 mg/dL (6-20); Calcium 8.7 mg/dL (8.5-10.5); Carbon Dioxide 23 mmol/L (22-29); Chloride 107 mmol/L (98-107); Globulin 2.5 g/dL (1.3-4.6); Glomerular Filtration Rate 77.1 mL/min (90-130); Glucose 175 mg/dL (65-115); Lipase 59 U/L (13-60); Osmolality Calculated 293 mOsm/kg (285-295); Sodium 139 mmol/L (136-145); Total Bilirubin 0.2 mg/dL (0.15-1.2); Total Protein 6.6 g/dL (6.6-8.7)
--- NOTE | 2023-02-20 18:54 | PC.NURSE ---
Report taken from STEPHANE Mcfarland at this time.
[2023-02-20 18:59] LABS: Aspartate Amino Transferase 36 U/L (0-40)
[2023-02-20 19:04] VITALS: RESP 18; O2SAT 95
[2023-02-20] MEDS: HYDROmorphone 1 mg/mL INJ 1 mL IVP (19:04)
[2023-02-20] MEDS: ondansetron 2 mg/ML SDV 2 mL 4 MG IVP (19:05)
[2023-02-20 19:11] VITALS: BP 124/68; PULSE 85; RESP 18; O2SAT 92
[2023-02-20 19:55] VITALS: BP 124/68; RESP 20
--- NOTE | 2023-02-21 08:06 | DCPLANNER ---
Addendum entered by Gertrudis Coelho 02/28/23 10:16: campaign management senior manager called [facility] to confirm that patients information had been received, welfare case worker was told that clinic had received patients information, it will be reviewed, clinic will call patient with appointment information. Addendum entered by Gertrudis Coelho 02/21/23 11:37: campaign management senior manager received the following message from the urology clinic regarding follow up appointment: Need to send elsewhere -will not have time to work patient up completely. Thank you campaign management senior manager called phone number [phone] to speak with patient and to confirm where patient would like referral sent. campaign management senior manager unable to speak with patient at this time, a voicemail was left asking patient to return rifle case repairer phone call. Original Note: campaign management senior manager had message to schedule a follow up appointment for patient with urology. campaign management senior manager sent patients information to the front office staff at urology. Patients information will be printed and reviewed. Clinic will call patient with appointment information.
--- NOTE | 2023-02-21 08:40 | DCPLANNER ---
alterations manager called patient due to no primary care physician - no answer at this time.
== END 2023-02-20 20:01 | disposition home or self-care (01) ==
PROVIDERS: Family Medicine; Emergency Provider Emergency Medicine
DX: R31.9 Hematuria, unspecified (principal); R10.9 Unspecified abdominal pain; F17.210 Nicotine dependence, cigarettes, uncomplicated
CPT/HCPCS: 74176; 80053; 81001; 83690; 85025; 87086; 96374; 96375; 99285; J1170; J2405

== ENCOUNTER 2023-10-21 17:13 | Inpatient (IN) | payer MEDICAID, SELFPAY ==
[2023-10-21 17:17] VITALS: BP 202/119; PULSE 92; RESP 16; TEMP 36.6; O2SAT 93; BMI 44.3
--- NOTE | 2023-10-21 17:32 | ED.C_ITS ---
HPI - Psych 2 General: Chief Complaint: Psychiatric Symptoms Stated Complaint: SI Time Seen by Provider: 10/21/23 17:21 Source: patient Mode of arrival: ambulatory Limitations: no limitations History of Present Illness: 33-year-old male states that he has been having increasing suicidal thoughts he states that he threatened to shoot himself with a gun he just no longer wants to live anymore he does admit to meth use 3 days ago he states that he had a daughter that last year and has been thinking about it more is causing more depression. Associated symptoms: Reports depression and suicidal ideation Review of Systems 2 Const: Denies: fever(s) or chills ENMT: Denies: throat pain or dental pain Card: Denies: chest pain Resp: Denies: dyspnea GI: Denies: abdominal pain, nausea, vomiting or diarrhea Musc: Denies: neck pain or back pain Skin/Breast: Denies: rash Neuro: Denies: headache(s) Psych: Reports: depression and suicidal ideation PFS ED 2 PFSH: Social History Smoking and tobacco/nicotine status: current every day tobacco/nicotine user cigarettes Packs smoked per day: 0.25 Years cigarettes smoked: 20 Quit status (tobacco/nicotine): has tried quititng Number of times tried to quit tobacco: 5 Second hand smoke exposure: No Physical Exam 2 Const: COMMON NORMALS: no acute distress, patient oriented x3 and healthy appearing HENMT: COMMON NORMALS: normocephalic and atraumatic HEAD & SCALP: n ormocephalic and atraumatic Eye: COMMON NORMALS: Equal, round and reactive pupils present and EOMs intact bilaterally PUPIL: Yes Equal, round and reactive pupils present Neck/C-Spine: COMMON NORMALS: full ROM and supple Chest: COMMONS NORMALS: normal inspection of the chest and normal palpation of entire chest wall Resp: COMMON NORMALS: normal respiratory effort Extremity: COMMON NORMALS: normal to inspection and full ROM Neuro: COMMON NORMALS: patient oriented x3, moves all extremities and no focal motor deficits Psych: COMMON NORMALS: mental status grossly normal, Normal thought process present and cooperative THOUGHT PROCESS: Normal thought process present T HOUGHT CONTENT: Yes Suicidality present Skin: COMMON NORMALS: no rashes or lesions noted and no wounds GENERAL SKIN EXAM: no rashes or lesions noted Course 2 Vital Signs: Vital signs: Vital Signs Temperature 97.9 F 10/21/23 17:17 Pulse Rate 86 10/21/23 18:22 Respiratory Rate 16 10/21/23 17:17 Blood Pressure 139/103 10/21/23 18:22 Pulse Oximetry 96 10/21/23 18:22 Oxygen Delivery Me thod Room Air 10/21/23 18:22 MDM - Psych Medical Decision Making Patient presents here with suicidal ideations patient is medically cleared he is placed under 96-hour hold I spoke to Dr. Cruz will admit. Medical Records I reviewed the patient's medical records. Lab Data I reviewed the patient's lab results. 10/21/23 18:06 10/21/23 18:06 Laboratory Results WBC 7.75 10^3/uL (3.29-11.43) 10/21/23 18:06 RBC 5.58 10^6/uL (3.85-5.65) 10/21/23 18:06 Hgb 17.10 g/dL (11.27-16.99) H 10/21/23 18:06 Hct 50.1 % (37-53) 10/21/23 18:06 MCV 89.8 fl (82-101) 10/21/23 18:06 MCH 30.6 pg (27-33) 10/21/23 18:06 MCHC 34.1 g/dL (30-55) 10/21/23 18:06 RDW 11.4 % (12.1-15.1) L 10/21/23 18:06 Plt Count 268 10^3/cmm (157-399) 10/21/23 18:06 MPV 9.6 fL (7.4-10.4) 10/21/23 18:06 Neut % (Auto) 56.9 % 10/21/23 18:06 Lymph % (Auto) 34.3 % 10/21/23 18:06 Moore % (Auto) 7.4 % 10/21/23 18:06 Eos % (Auto) 0.8 % 10/21/23 18:06 Baso % (Auto) 0.5 % 10/21/23 18:06 Neut # (Auto) 4.41 10^3/uL (1.8-7.7) 10/21/23 18:06 Lymph # (Auto) 2.7 10^3/uL (0.8-4.8) 10/21/23 18:06 Moore # (Auto) 0.6 10^3/uL (0.2-0.9) 10/21/23 18:06 Eos # (Auto) 0.1 10^3/uL (0.0-0.8) 10/21/23 18:06 Baso # (Auto) 0.0 10^3/uL (0.0-0.1) 10/21/23 18:06 Nucleated RBC % (auto) 0 % 10/21/23 18:06 Nucleated RBCs # 0.0 /100WBC 10/21/23 18:06 Sodium 140 mmol/L (136-145) 10/21/23 18:06 Potassium 3.7 mmol/L (3.5-5.1) 10/21/23 18:06 Chloride 104 mmol/L (98-107) 10/21/23 18:06 Carbon Dioxide 24 mmol/L (22-29) 10/21/23 18:06 Anion Gap 15.7 (5-19) 10/21/23 18:06 BUN 12 mg/dL (6-20) 10/21/23 18:06 Creatinine 1.1 mg/dL (0.7-1.2) 10/21/23 18:06 GFR Calculation 76.6 mL/min (90-130) L 10/21/23 18:06 Glucose 127 mg/dL (65-115) H 10/21/23 18:06 Calculated Osmolality 291 mOsm/kg (285-295) 10/21/23 18:06 Calcium 9.5 mg/dL (8.5-10.5) 10/21/23 18:06 Total Bilirubin 0.6 mg/dL (0.15-1.2) 10/21/23 18:06 AST 36 U/L (0-40) 10/21/23 18:06 ALT 59 U/L (0-41) H 10/21/23 18:06 Alkaline Phosphatase 73 U/L (40-130) 10/21/23 18:06 Total Protein 7.5 g/dL (6.6-8.7) 10/21/23 18:06 Albumin 4.1 g/dL (3.5-5.2) 10/21/23 18:06 Globulin 3.4 g/dL (1.3-4.6) 10/21/23 18:06 Salicylates < 0.3 mg/dL (3-10) L 10/21/23 18:06 Acetaminophen < 5.0 ug/mL (10-30) L 10/21/23 18:06 Ethyl Alcohol < 10 mg/dL (0-10) 10/21/23 18:06 No radiology studies performed this visit Discharge Plan Discharge Admit Provider: Azeem Cruz Condition: Stable Prescriptions: No Action bupropion HCl [Wellbutrin XL] 150 mg tablet extended release 24 hr 150 mg PO QAM Qty: 30 2RF buspirone 10 mg tablet 10 mg PO TID Qty: 90 2RF quetiapine [Seroquel] 100 mg tablet 100 mg PO .HS Qty: 30 2RF cyclobenzaprine 10 mg tablet 10 mg PO TID Qty: 14 0RF Medrol (Mak) 4 mg tablets,dose pack See Rx Instructions .ROUTE .COMPLEX Qty: 21 0RF Rx Instructions: orally per package directions ibuprofen 800 mg tablet 800 mg PO Q8H PRN (Reason: pain) Qty: 30 0RF hydrocodone-acetaminophen 5-325 mg tablet 1 tab PO Q6H PRN (Reason: pain) Qty: 14 0RF ondansetron 4 mg tablet,disintegrating 4 mg PO Q6H PRN (Reason: nausea and vomiting) Qty: 14 0RF hydrocodone-acetaminophen 5-325 mg tablet 1 tab PO Q8H PRN (Reason: pain (scale score 7-10)) Qty: 6 0RF Coding Level of Care Code ED [employer] for [employer]
[2023-10-21 18:15] LABS: Basophils % 0.5 %; Eosinophils # 0.1 10^3/uL (0.0-0.8); Eosinophils % 0.8 %; Hematocrit 50.1 % (37-53); Lymphocytes # 2.7 10^3/uL (0.8-4.8); Lymphocytes % 34.3 %; Mean Corpuscular HGB Conc 34.1 g/dL (30-55); Mean Corpuscular Hemoglobin 30.6 pg (27-33); Mean Corpuscular Volume 89.8 fl (82-101); Mean Platelet Volume 9.6 fL (7.4-10.4); Monocytes # 0.6 10^3/uL (0.2-0.9); Monocytes % 7.4 %; Neutrophils # 4.41 10^3/uL (1.8-7.7); Neutrophils % 56.9 %; Nucleated Red Blood Cells % 0 %; Platelet Count 268 10^3/cmm (157-399); Red Blood Count 5.58 10^6/uL (3.85-5.65); Red Cell Distribution Width 11.4 % (12.1-15.1); White Blood Count 7.75 10^3/uL (3.29-11.43)
[2023-10-21 18:22] VITALS: BP 139/103; PULSE 86; O2SAT 96
[2023-10-21 18:31] LABS: Acetaminophen < 5.0 ug/mL (10-30); Alanine Aminotransferase 59 U/L (0-41); Albumin Level 4.1 g/dL (3.5-5.2); Alkaline Phosphatase 73 U/L (40-130); Blood Urea Nitrogen 12 mg/dL (6-20); Calcium 9.5 mg/dL (8.5-10.5); Carbon Dioxide 24 mmol/L (22-29); Chloride 104 mmol/L (98-107); Globulin 3.4 g/dL (1.3-4.6); Glomerular Filtration Rate 76.6 mL/min (90-130); Glucose 127 mg/dL (65-115); Osmolality Calculated 291 mOsm/kg (285-295); Salicylate < 0.3 mg/dL (3-10); Sodium 140 mmol/L (136-145); Total Bilirubin 0.6 mg/dL (0.15-1.2); Total Protein 7.5 g/dL (6.6-8.7)
[2023-10-21 18:35] LABS: Alcohol Level < 10 mg/dL (0-10)
[2023-10-21 18:36] LABS: Anion Gap 15.7 (5-19); Aspartate Amino Transferase 36 U/L (0-40); Potassium 3.7 mmol/L (3.5-5.1)
[2023-10-21 19:06] LABS: Amphetamines Screen Urine Positive (Negative); Barbiturates Screen Urine Negative (Negative); Benzodiazepines Screen Urine Negative (Negative); Cocaine Screen Urine Negative (Negative); Opiate Screen Urine Negative (Negative); PCP Screen Urine Negative (Negative); THC Screen Urine Positive (Negative)
[2023-10-21 20:28] LABS: Glucose Point of Care 139 mg/dL (70-110)
[2023-10-21 20:46] VITALS: BP 186/113; PULSE 96; RESP 18; TEMP 37; O2SAT 96
[2023-10-21 20:58] VITALS: BP 159/81; PULSE 97; RESP 18; TEMP 37; O2SAT 96
[2023-10-21] MEDS: trazodone 50 mg Tablet PO (21:01)
[2023-10-21] MEDS: hyDROXYzine 25 mg Capsule 50 MG PO (21:01)
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
[2023-10-22 06:00] VITALS: BP 144/89; PULSE 83; RESP 18; TEMP 36.8; O2SAT 97
[2023-10-22 07:47] LABS: Glucose Point of Care 115 mg/dL (70-110)
[2023-10-22] MEDS: hyDROXYzine 25 mg Capsule 50 MG PO ×2 (08:11→18:04)
[2023-10-22 11:57] LABS: Glucose Point of Care 132 mg/dL (70-110)
[2023-10-22] MEDS: acetaminophen 325 mg Tablet 650 MG PO (12:31)
[2023-10-22] MEDS: OLANZapine 5 mg ODT PO ×2 (12:31→18:04)
[2023-10-22 14:00] VITALS: BP 145/78; PULSE 88; RESP 16; TEMP 36.9; O2SAT 98
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
[2023-10-22 17:50] LABS: Glucose Point of Care 162 mg/dL (70-110)
[2023-10-22] MEDS: gabapentin 100 mg Capsule PO (18:34)
[2023-10-22 20:42] VITALS: BP 160/74; PULSE 73; RESP 18; TEMP 36.3; O2SAT 99
[2023-10-22 21:01] LABS: Glucose Point of Care 137 mg/dL (70-110)
[2023-10-23 06:00] VITALS: BP 143/92; PULSE 60; RESP 18; TEMP 36.4; O2SAT 99
[2023-10-23 08:24] LABS: Glucose Point of Care 109 mg/dL (70-110)
--- NOTE | 2023-10-23 08:35 | W.PM.NPUPNS ---
Subjective NPU Subjective: Patient presented today reporting that things are going okay with the resumption of his Tegretol. He endorsed that he still having significant depression and was somewhat tearful in discussing missing his daughter who he has not seen since October 09 or . We discussed the possibility of starting an antidepressant tomorrow. Otherwise she denied any side effects to the medications. Mental Status Exam MSE Comments: This is an obese versus morbidly obese white male in hospital scrubs with limited grooming and eye contact.? No abnormal movements except for mild psychomotor retardation.? Cooperative with exam in mild distress.? Speech was decreased rate and volume.? Mood described as depressed and anxious, affect congruent and subdued.? Thought process organized.? Thought content: Patient endorsed suicidal ideation and denied homicidal ideation, there were no delusions reported or noted, he denied any auditory or visual hallucinations.? Attention and concentration were intact and memory appeared mostly reliable but none were formally tested.? He is alert and oriented x3.? Insight and judgment appear limited and impulse control is impaired. Vitals/I&O/Wt Last Vital Signs Temp 97.5 F L 10/23/23 06:00 Pulse 60 10/23/23 06:00 Resp 18 10/23/23 06:00 BP 143/92 10/23/23 06:00 Pulse Ox 99 10/23/23 06:00 O2 Del Method Room Air 10/22/23 14:00 Weight last 48 hrs Weight 165.108 kg Data NPU 10/21/23 18:06 10/21/23 18:06 A&P Assessment and plan (1) Borderline personality disorder: (2) Methamphetamine use disorder, moderate, dependence: (3) Cannabis use disorder, moderate, dependence: (4) Post traumatic stress disorder (PTSD): (5) Schizoaffective disorder: Plan This is a 33-year-old white male with severe depressive symptoms, anxiety, and suicidal ideation. History of trauma and substance use. Currently in a stressful situation due to family issues. Previous psychiatric medications reported to be helpful but that combination was last prescribed in 2012. 1.? Continue current medications. Restarted Tegretol 200 mg p.o. twice daily and consider other medications as appropriate. Consider the possibility of a novel antidepressant tomorrow. 2.? Continue every 15 minute checks for safety. 3.? Encourage individual, group and milieu therapies. 4. Encourage sober living treatment after discharge at the highest level of care to which he is willing to commit. Involuntary Hold Information 96 Hour Hold: 96 Hour Involuntary Admission: Yes 96 Hour Hold Ending Date: 10/25/23 96 Hour Hold Ending Time: 18:01 Attestations NPU Medical Necessity Statement*: Inpatient hospitalization is medically necessary and the clinically appropriate intervention at this time. We will monitor medications and make changes as indicated. Likely length of stay 2-4 days. Coding Level of Care Code Acute Code for [facility] Fw Diagnoses Borderline personality disorder F60.3 Methamphetamine use disorder, moderate, dependence F15.20 Cannabis use disorder, moderate, dependence F12.20 Post traumatic stress disorder (PTSD) F43.10 Schizoaffective disorder F25.9
[2023-10-23] MEDS: carBAMazepine 200 mg Tablet PO ×2 (08:39→17:17)
[2023-10-23] MEDS: gabapentin 100 mg Capsule PO ×3 (08:39→20:12)
[2023-10-23 14:00] VITALS: BP 149/71; PULSE 72; RESP 15; O2SAT 96
[2023-10-23] MEDS: propranolol 20 mg Tablet PO (17:17)
[2023-10-23 18:56] LABS: Glucose Point of Care 139 mg/dL (70-110)
[2023-10-23] MEDS: nicotine 2 mg Gum BUCCAL (19:29)
[2023-10-23 20:27] LABS: Glucose Point of Care 161 mg/dL (70-110)
[2023-10-23] MEDS: trazodone 50 mg Tablet PO (20:48)
[2023-10-23 21:13] VITALS: BP 143/83; PULSE 78; RESP 16; TEMP 36.6; O2SAT 96
--- NOTE | 2023-10-24 01:50 | P.NPUPN_ITS ---
Subjective NPU 2 Subjective: Patient presented today reporting that he continues to be quite depressed and sad. He once again stressed that he knew the medications that helped which included Klonopin. We discussed being open to starting something for depression and anxiety that was not a benzodiazepine. We discussed the risks, benefits and alternatives of initiating Wellbutrin XL 150 mg p.o. every morning in the morning and he understood and agreed to proceed as is documented in this note. He denied any difficulties or side effects to the current medication. Mental Status Exam 2 MSE Comments: This is an obese versus morbidly obese white male in hospital scrubs with limited grooming and eye contact.? No abnormal movements except for mild psychomotor retardation.? Cooperative with exam in mild distress.? Speech was decreased rate and volume.? Mood described as depressed, affect congruent and subdued.? Thought process organized.? Thought content: Patient endorsed suicidal ideation and denied homicidal ideation, there were no delusions reported or noted, he denied any auditory or visual hallucinations.? Attention and concentration were intact and memory appeared mostly reliable but none were formally tested.? He is alert and oriented x3.? Insight and judgment appear limited and impulse control is impaired. Vitals/I&O/Wt Last Vital Signs Temp 97.8 F 10/24/23 06:00 Pulse 77 10/24/23 06:00 Resp 16 10/24/23 06:00 BP 120/77 10/24/23 06:00 Pulse Ox 95 10/24/23 06:00 O2 Del Method Room Air 10/24/23 06:00 Data NPU 10/21/23 18:06 10/21/23 18:06 A&P Assessment and plan (1) Borderline personality disorder: (2) Methamphetamine use disorder, moderate, dependence: (3) Cannabis use disorder, moderate, dependence: (4) Post traumatic stress disorder (PTSD): (5) Schizoaffective disorder: Plan This is a 33-year-old white male with severe depressive symptoms, anxiety, and suicidal ideation. History of trauma and substance use. Currently in a stressful situation due to family issues. Previous psychiatric medications reported to be helpful but that combination was last prescribed in 2012. 1.? Continue current medications. Restarted Tegretol 200 mg p.o. twice daily and consider other medications as appropriate. Start Wellbutrin XL 150 mg every morning tomorrow. 2.? Continue every 15 minute checks for safety. 3.? Encourage individual, group and milieu therapies. 4. Encourage sober living treatment after discharge at the highest level of care to which he is willing to commit. Involuntary Hold Information 2 96 Hour Hold: 96 Hour Involuntary Admission: Yes 96 Hour Hold Ending Date: 10/25/23 96 Hour Hold Ending Time: 18:01 Attestations NPU 2 Medical Necessity Statement*: Inpatient hospitalization is medically necessary and the clinically appropriate intervention at this time. We will monitor medications and make changes as indicated. Likely length of stay 2-4 days. Coding Level of Care Code Acute Code for g Fwd Diagnoses Borderline personality disorder F60.3 Methamphetamine use disorder, moderate, dependence F15.20 Cannabis use disorder, moderate, dependence F12.20 Post traumatic stress disorder (PTSD) F43.10 Schizoaffective disorder F25.9
[2023-10-24 06:00] VITALS: BP 120/77; PULSE 77; RESP 16; TEMP 36.6; O2SAT 95
[2023-10-24 08:07] LABS: Glucose Point of Care 145 mg/dL (70-110)
[2023-10-24] MEDS: gabapentin 100 mg Capsule PO ×3 (09:34→20:08)
[2023-10-24] MEDS: nicotine 2 mg Gum BUCCAL (09:35)
[2023-10-24] MEDS: carBAMazepine 200 mg Tablet PO ×2 (09:35→17:11)
[2023-10-24] MEDS: hyDROXYzine 25 mg Capsule 50 MG PO ×2 (11:38→20:08)
[2023-10-24 12:06] LABS: Glucose Point of Care 107 mg/dL (70-110)
[2023-10-24 14:00] VITALS: BP 149/81; PULSE 83; RESP 20; TEMP 36.8; O2SAT 95
[2023-10-24 17:01] LABS: Glucose Point of Care 100 mg/dL (70-110)
[2023-10-24] MEDS: acetaminophen 325 mg Tablet 650 MG PO (17:24)
[2023-10-24] MEDS: trazodone 50 mg Tablet PO (20:08)
[2023-10-24 20:27] LABS: Glucose Point of Care 158 mg/dL (70-110)
[2023-10-24 21:38] VITALS: BP 154/99; PULSE 92; RESP 18; TEMP 36.7; O2SAT 92
[2023-10-25 06:00] VITALS: BP 138/79; PULSE 68; RESP 16; TEMP 36.4; O2SAT 96
[2023-10-25 08:05] LABS: Glucose Point of Care 121 mg/dL (70-110)
--- NOTE | 2023-10-25 08:28 | P.NPUPN_ITS ---
Subjective NPU 2 Subjective: Patient presented today reporting that he feels a little better. He reports feeling okay with the medicines including Wellbutrin XL. He denied any difficulties or side effects to the current medication. Mental Status Exam 2 MSE Comments: This is an obese versus morbidly obese white male in hospital scrubs with limited grooming and eye contact.? No abnormal movements except for mild psychomotor retardation.? Cooperative with exam in mild distress.? Speech was decreased rate and volume.? Mood described as depressed, affect congruent and subdued.? Thought process organized.? Thought content: Patient denied suicidal ideation and denied homicidal ideation, there were no delusions reported or noted, he denied any auditory or visual hallucinations.? Attention and concentration were intact and memory appeared mostly reliable but none were formally tested.? He is alert and oriented x3.? Insight and judgment appear limited and impulse control is impaired. Vitals/I&O/Wt Last Vital Signs Temp 97.6 F 10/25/23 06:00 Pulse 68 10/25/23 06:00 Resp 16 10/25/23 06:00 BP 138/79 10/25/23 06:00 Pulse Ox 96 10/25/23 06:00 O2 Del Method Room Air 10/25/23 06:00 Data NPU 10/21/23 18:06 10/21/23 18:06 A&P Assessment and plan (1) Borderline personality disorder: (2) Methamphetamine use disorder, moderate, dependence: (3) Cannabis use disorder, moderate, dependence: (4) Post traumatic stress disorder (PTSD): (5) Schizoaffective disorder: Plan This is a 33-year-old white male with severe depressive symptoms, anxiety, and suicidal ideation. History of trauma and substance use. Currently in a stressful situation due to family issues. Previous psychiatric medications reported to be helpful but that combination was last prescribed in 2012. 1.? Continue current medications. Restarted Tegretol 200 mg p.o. twice daily and consider other medications as appropriate. Started Wellbutrin XL 150 mg every morning tomorrow. 2.? Continue every 15 minute checks for safety. 3.? Encourage individual, group and milieu therapies. 4. Encourage sober living treatment after discharge at the highest level of care to which he is willing to commit. Involuntary Hold Information 2 96 Hour Hold: 96 Hour Involuntary Admission: Yes 96 Hour Hold Ending Date: 10/25/23 96 Hour Hold Ending Time: 18:01 Attestations NPU 2 Medical Necessity Statement*: Inpatient hospitalization is medically necessary and the clinically appropriate intervention at this time. We will monitor medications and make changes as indicated. Likely length of stay 2-4 days. Coding Level of Care Code Acute Code for Chg Fwd Diagnoses Borderline personality disorder F60.3 Methamphetamine use disorder, moderate, dependence F15.20 Cannabis use disorder, moderate, dependence F12.20 Post traumatic stress disorder (PTSD) F43.10 Schizoaffective disorder F25.9
[2023-10-25] MEDS: carBAMazepine 200 mg Tablet PO ×2 (08:42→17:36)
[2023-10-25] MEDS: gabapentin 100 mg Capsule PO ×3 (08:42→21:08)
[2023-10-25] MEDS: buPROPion XL (24 HR) 150 mg Tablet PO (08:53)
[2023-10-25 12:23] LABS: Glucose Point of Care 115 mg/dL (70-110)
[2023-10-25] MEDS: OLANZapine 5 mg ODT PO (12:34)
[2023-10-25] MEDS: hyDROXYzine 25 mg Capsule 50 MG PO (12:57)
[2023-10-25 14:00] VITALS: BP 153/90; PULSE 87; RESP 20; TEMP 37; O2SAT 95
[2023-10-25] MEDS: haloperidol 5 mg Tablet PO (14:17)
[2023-10-25 20:14] LABS: Glucose Point of Care 177 mg/dL (70-110)
[2023-10-25] MEDS: trazodone 50 mg Tablet PO (21:08)
[2023-10-25 21:09] VITALS: BP 163/79; PULSE 86; RESP 18; TEMP 36.8; O2SAT 96
[2023-10-26 06:00] VITALS: BP 149/83; PULSE 72; RESP 18; TEMP 36.5; O2SAT 97
--- NOTE | 2023-10-26 06:35 | P.NPUPN_ITS ---
Subjective NPU 2 Subjective: Patient presented today reporting that he is doing a little better. He reports that he feels like the Wellbutrin was quite helpful and he denied any problems with any of the medication that started. He did not ask about Klonopin for his anxiety. We did discuss Dr. Becker returning tomorrow and a tentative plan for discharge on Saturday which he reports feeling fairly confident about. He denies any side effects to the medication. Mental Status Exam 2 MSE Comments: This is an obese versus morbidly obese white male in hospital scrubs with limited grooming and eye contact.? No abnormal movements except for mild psychomotor retardation.? Cooperative with exam in mild distress.? Speech was decreased rate and volume.? Mood described as a little better, affect congruent and less subdued.? Thought process organized.? Thought content: Patient denied suicidal ideation and denied homicidal ideation, there were no delusions reported or noted, he denied any auditory or visual hallucinations.? Attention and concentration were intact and memory appeared mostly reliable but none were formally tested.? He is alert and oriented x3.? Insight and judgment appear limited and impulse control is impaired. Vitals/I&O/Wt Last Vital Signs Temp 97.7 F 10/26/23 06:00 Pulse 72 10/26/23 06:00 Resp 18 10/26/23 06:00 BP 149/83 10/26/23 06:00 Pulse Ox 97 10/26/23 06:00 O2 Del Method Room Air 10/25/23 14:00 Data NPU 10/21/23 18:06 10/21/23 18:06 A&P Assessment and plan (1) Borderline personality disorder: (2) Methamphetamine use disorder, moderate, dependence: (3) Cannabis use disorder, moderate, dependence: (4) Post traumatic stress disorder (PTSD): (5) Schizoaffective disorder: Plan This is a 33-year-old white male with severe depressive symptoms, anxiety, and suicidal ideation. History of trauma and substance use. Currently in a stressful situation due to family issues. Previous psychiatric medications reported to be helpful but that combination was last prescribed in 2012. 1.? Continue current medications. Restarted Tegretol 200 mg p.o. twice daily and consider other medications as appropriate. Started Wellbutrin XL 150 mg every morning. 2.? Continue every 15 minute checks for safety. 3.? Encourage individual, group and milieu therapies. 4. Encourage sober living treatment after discharge at the highest level of care to which he is willing to commit. 5. Tentative plan for discharge on Saturday. Involuntary Hold Information 2 96 Hour Hold: 96 Hour Involuntary Admission: Yes 96 Hour Hold Ending Date: 10/25/23 96 Hour Hold Ending Time: 18:01 Attestations NPU 2 Medical Necessity Statement*: Inpatient hospitalization is medically necessary and the clinically appropriate intervention at this time. We will monitor medications and make changes as indicated. Likely length of stay 2 days. Coding Level of Care Code Acute Code for g Fwd Diagnoses Borderline personality disorder F60.3 Methamphetamine use disorder, moderate, dependence F15.20 Cannabis use disorder, moderate, dependence F12.20 Post traumatic stress disorder (PTSD) F43.10 Schizoaffective disorder F25.9
[2023-10-26 07:38] LABS: Glucose Point of Care 101 mg/dL (70-110)
[2023-10-26] MEDS: buPROPion XL (24 HR) 150 mg Tablet PO (07:55)
[2023-10-26] MEDS: gabapentin 100 mg Capsule PO ×3 (07:55→20:10)
[2023-10-26] MEDS: carBAMazepine 200 mg Tablet PO ×2 (07:55→17:08)
[2023-10-26] MEDS: nicotine 2 mg Gum BUCCAL ×2 (11:20→19:08)
[2023-10-26] MEDS: hyDROXYzine 25 mg Capsule 50 MG PO ×2 (11:27→19:14)
[2023-10-26 12:00] LABS: Glucose Point of Care 152 mg/dL (70-110)
[2023-10-26 14:00] VITALS: RESP 18
[2023-10-26 18:00] LABS: Glucose Point of Care 134 mg/dL (70-110)
[2023-10-26] MEDS: OLANZapine 5 mg ODT PO (18:42)
[2023-10-26 19:38] VITALS: BP 154/88; PULSE 96; RESP 18; TEMP 36.8; O2SAT 94
[2023-10-26 19:55] LABS: Glucose Point of Care 213 mg/dL (70-110)
[2023-10-26] MEDS: trazodone 50 mg Tablet PO (20:10)
[2023-10-26] MEDS: calcium carbonate 500 mg Chew Tablet 1000 MG PO (20:27)
[2023-10-27 06:00] VITALS: RESP 16
[2023-10-27 08:24] LABS: Glucose Point of Care 134 mg/dL (70-110)
[2023-10-27] MEDS: carBAMazepine 200 mg Tablet PO ×2 (09:24→17:29)
[2023-10-27] MEDS: buPROPion XL (24 HR) 150 mg Tablet PO (09:24)
[2023-10-27] MEDS: nicotine 21 mg Patch 1 PATCH TRANSDERMA (09:25)
[2023-10-27] MEDS: gabapentin 100 mg Capsule PO ×3 (09:25→20:01)
[2023-10-27] MEDS: hyDROXYzine 25 mg Capsule 50 MG PO (13:06)
[2023-10-27 14:00] VITALS: BP 154/82; PULSE 130; RESP 15; TEMP 36.3; O2SAT 95
[2023-10-27] MEDS: OLANZapine 5 mg ODT PO (14:17)
--- NOTE | 2023-10-27 15:09 | W.PM.NPUPNS ---
Subjective NPU Subjective: 33-year-old male with a history of borderline personality disorder, PTSD and history of schizoaffective disorder admitted with depression and suicidal ideation. Patient continued to report that he was feeling better. He continued to endorse having flashbacks regarding childhood trauma. He stated that he wished to have Klonopin for his anxiety but states that he had not been on Klonopin in more than 10 years. He had reported that he had stopped his medications while he was incarcerated for 180 days. He had reported that he had been out of detention in September after a 6 month stay there for drug related offense. He reported no cravings for opiates at this time. He reported no cravings for methamphetamine. He reported no hallucinations at this time. He had reported that he remained homeless at this time. Mental Status Exam MSE Comments: This is an obese versus morbidly obese white male in hospital scrubs with limited grooming and eye contact.? No abnormal movements except for mild psychomotor retardation.? Cooperative with exam in mild distress.? Speech was diminished in rate and normal in volume.? Mood described as anxious. Affect was mood incongruent and flat. Thought process was linear and organized.? Thought content: Patient denied suicidal ideation and denied homicidal ideation, there were no delusions reported or noted, he denied any auditory or visual hallucinations.? Attention and concentration were intact and memory appeared mostly reliable but none were formally tested.? He is alert and oriented x3.? Insight and judgment appear limited and impulse control is impaired. Vitals/I&O/Wt Last Vital Signs Temp 97.4 F L 10/27/23 14:00 Pulse 130 H 10/27/23 14:00 Resp 15 10/27/23 14:00 BP 154/82 10/27/23 14:00 Pulse Ox 95 10/27/23 14:00 O2 Del Method Room Air 10/25/23 14:00 Weight last 48 hrs Weight 165.108 kg Data NPU 10/21/23 18:06 10/21/23 18:06 A&P Assessment and plan (1) Borderline personality disorder: (2) Methamphetamine use disorder, moderate, dependence: (3) Cannabis use disorder, moderate, dependence: (4) Post traumatic stress disorder (PTSD): (5) Schizoaffective disorder: Plan This is a 33-year-old white male with severe depressive symptoms, anxiety, and suicidal ideation. History of trauma and substance use. Currently in a stressful situation due to family issues. Previous psychiatric medications reported to be helpful but that combination was last prescribed in 2012. 1.? Continue Tegretol 200 mg p.o. twice daily and Wellbutrin XL 150 mg every morning. 2.? Continue every 15 minute checks for safety. 3.? Encourage individual, group and milieu therapies. 4. Encourage sober living treatment after discharge at the highest level of care to which he is willing to commit. 5. Tentative plan for discharge on Saturday. Involuntary Hold Information 96 Hour Hold: 96 Hour Involuntary Admission: Yes 96 Hour Hold Ending Date: 10/25/23 96 Hour Hold Ending Time: 18:01 Attestations NPU Medical Necessity Statement*: Inpatient hospitalization is medically necessary and the clinically appropriate intervention at this time. We will monitor medications and make changes as indicated. The patient's likely length of stay is 2 days. Coding Level of Care Code Acute Code for [facility] Diagnoses Borderline personality disorder F60.3 Methamphetamine use disorder, moderate, dependence F15.20 Cannabis use disorder, moderate, dependence F12.20 Post traumatic stress disorder (PTSD) F43.10 Schizoaffective disorder F25.9
[2023-10-27] MEDS: nicotine 2 mg Gum BUCCAL (16:19)
[2023-10-27] MEDS: benztropine 1 mg Tablet PO (16:26)
[2023-10-27] MEDS: haloperidol 5 mg Tablet PO (16:26)
[2023-10-27 19:55] LABS: Glucose Point of Care 178 mg/dL (70-110)
[2023-10-27 20:00] VITALS: BP 120/65; PULSE 106; RESP 18; TEMP 36.5; O2SAT 94
[2023-10-28 05:53] VITALS: BP 154/87; PULSE 99; RESP 16; TEMP 36.4; O2SAT 95
[2023-10-28] MEDS: hyDROXYzine 25 mg Capsule 50 MG PO (08:35)
[2023-10-28] MEDS: buPROPion XL (24 HR) 150 mg Tablet PO (08:35)
[2023-10-28] MEDS: carBAMazepine 200 mg Tablet PO (08:35)
[2023-10-28] MEDS: gabapentin 100 mg Capsule PO (08:35)
[2023-10-28 09:28] LABS: Glucose Point of Care 181 mg/dL (70-110)
--- NOTE | 2023-10-28 09:39 | PC.NURSE ---
PT CURRENTLY DENIES SI/HI/AH/VH. PT CURRENTLY ENDORSES ANXIETY RATING IT A 8/10 ON A 0-10 SCALE WHERE 0 IS NONE AT ALL AND 10 IS THE WORST POSSIBLE. PT ENDORSES DEPRESSION RATING IT A 4/10 ON A 0-10 SCALE WHERE 0 IS NONE AND 10 IS THE WORST POSSIBLE. PT WAS OFFERED AND RECIEVED PRN HYDROXYZINE 50MG. PT WAS WILLING AND COOPERATIVE WITH MEDICATIONS AND ASSESSMENT. PT CURRENT NEEDS ARE MET AT THIS TIME.
[2023-10-28] MEDS: OLANZapine 5 mg ODT PO (10:58)
[2023-10-28 11:54] LABS: Glucose Point of Care 164 mg/dL (70-110)
[2023-10-28] MEDS: ondansetron 4 MG Tablet PO (11:59)
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
[2023-10-28 12:29] VITALS: BP 154/87; PULSE 99; RESP 16; TEMP 36.4; O2SAT 95
== END 2023-10-28 15:10 | disposition home or self-care (01) | DRG 880 ==
LOC: ER 18:09 → NP 18:44
PROVIDERS: Admitting Provider Psychiatry & Neurology Psychiatry; Emergency Provider Emergency Medicine; Visit Provider Psychiatry & Neurology Psychiatry
DX: F41.8 Other specified anxiety disorders (principal); R45.851 Suicidal ideations; Z59.00 Homelessness unspecified; F15.20 Other stimulant dependence, uncomplicated; F17.210 Nicotine dependence, cigarettes, uncomplicated; F60.3 Borderline personality disorder; F43.10 Post-traumatic stress disorder, unspecified; F25.9 Schizoaffective disorder, unspecified; Z91.52 Personal history of nonsuicidal self-harm; Z62.810 Personal history of physical and sexual abuse in childhood; Z63.4 Disappearance and death of family member; F12.20 Cannabis dependence, uncomplicated; F14.21 Cocaine dependence, in remission
CPT/HCPCS: 36415; 36416; 80053; 80306; 80307; 82962; 85025; 97150; 97165; 99285; Q0162

== ENCOUNTER 2024-07-26 17:30 | Emergency (ER) | payer BC, MEDICAID, SELFPAY ==
[2024-07-26 17:40] VITALS: BP 150/100; PULSE 107; RESP 22; O2SAT 92; BMI 39.9
[2024-07-26] MEDS: ondansetron 2 mg/ML SDV 2 mL 4 MG IVP (18:08)
[2024-07-26 18:09] VITALS: RESP 18; O2SAT 97
[2024-07-26] MEDS: HYDROmorphone 1 mg/mL INJ 1 mL IVP ×2 (18:09→19:24)
[2024-07-26] MEDS: sodium chloride 0.9% 500 ML 999 ML IV (18:09)
--- NOTE | 2024-07-26 18:11 | XRR_ITS ---
PROCEDURE INFORMATION: Exam: XR Left Wrist Exam date and time: 07/26/2024 6:18 PM Age: 34 years old Clinical indication: Left; Patient HX: Lt wrist pain/laceration TECHNIQUE: Imaging protocol: Radiologic exam of the left wrist. Views: 3 or more views. COMPARISON: No relevant prior studies available. FINDINGS: Bones/joints: Normal. Soft tissues: Laceration along palmar aspect of the wrist with a 1 mm radiopaque foreign body just deep to the laceration. Couple additional punctate radiopaque foreign bodies also noted. XR/XR wrist LT min 3V* [id number] IMPRESSION: Laceration at the palmar aspect of the wrist with a few tiny radiopaque foreign bodies measuring up to 1 mm in size.
--- NOTE | 2024-07-26 18:34 | W.ED.WOUNDLC ---
HPI - Wound/Laceration General: Chief Complaint: Wound/Laceration Stated Complaint: head and arm laceration Time Seen by Provider: 07/26/24 18:01 History of Present Illness: 34-year-old male patient who was working with a reciprocating saw. Evidently the blade burst, and a portion of it buried itself into his left volar wrist. He states that he dug it out . Another piece hit him in the left forehead. He complains mainly of left volar wrist pain. He states that his fingers are generally numb. Related Data Previous Rx's Medication Instructions Recorded bupropion HCl 150 mg 24 hr tablet, 150 mg PO DAILY 30 days #30 tabs 10/28/23 extended release carbamazepine 200 mg tablet 200 mg PO BID 30 days #60 tabs 10/28/23 gabapentin 100 mg capsule 100 mg PO TID 30 days #90 caps 10/28/23 hydroxyzine pamoate 25 mg capsule 25 mg PO QID #120 caps 10/28/23 cephalexin 500 mg capsule 500 mg PO Q6H 7 days #28 caps 07/26/24 hydrocodone 5 mg-acetaminophen 325 1 tab PO Q8H PRN pain #7 tabs 07/26/24 mg tablet Allergies Allergy/AdvReac Type Severity Reaction Status Date / Time No Known Allergies Allergy Verified 07/26/24 17:40 PFSH ED PFSH: Medical History Psychiatric care Post traumatic stress disorder (PTSD) Schizoaffective disorder per client report Social History Smoking and tobacco/nicotine status: current every day tobacco/nicotine user cigarettes Packs smoked per day: 0.25 Years cigarettes smoked: 20 Quit status (tobacco/nicotine): has tried quititng Number of times tried to quit tobacco: 5 Second hand smoke exposure: No Physical Exam Const: COMMON NORMALS: no acute distress GENERAL APPEARANCE: cooperative; not ill appearing and not frail appearing HENMT: COMMON NORMALS: normocephalic and Normal external nose present HEAD & SCALP: normocephalic and laceration (Left forehead. Small) FACE & SINUS: normal facial exam and face symmetric NOSE: Normal external nose present Eye: COMMON NORMALS: Equal, round and reactive pupils present and EOMs intact bilaterally PUPIL: Yes Equal, round and reactive pupils present Neck/C-Spine: GENERAL: Yes trachea midline Chest: CHEST: Yes Symmetrical chest wall rise Resp: COMMON NORMALS: normal respiratory effort, No retractions, No use of accessory muscles and clear to auscultation bilaterally AUSCULTATION: clear to auscultation bilaterally Cardio: COMMON NORMALS: regular rate and regular rhythm RATE: regular rate RHYTHM: regular rhythm GI: COMMON NORMALS: Normal to inspection, nondistended, normoactive bowel sounds present Extremity: NARRATIVE EXTREMITY EXAM: 3 cm laceration, to the volar wrist. Patient is unwilling at this point to move his fingers. No deformity. Neuro: REGAN COMA SCALE: document GCS findings Regan coma scale eye opening: Spontaneous [place] coma scale verbal response: Orientated [place] coma scale motor response: Obey commands [place] coma scale total score: 15 SENSORY EXAM: Yes extremities (intact) Psych: COMMON NORMALS: speech normal SPEECH: Yes normal speech Skin: COMMON NORMALS: no rashes or lesions noted GENERAL SKIN EXAM: no rashes or lesions noted Course Vital Signs: Vital signs: Vital Signs Pulse Rate 88 07/26/24 20:31 Respiratory Rate 18 07/26/24 18:09 Blood Pressure 100/82 07/26/24 20:31 Pulse Oximetry 95 07/26/24 20:31 MDM - Wound/Laceration Medical Decision Making X-ray shows tiny subcutaneous metallic foreign body. Wound was scrubbed with Betadine and peroxide, washed with copious amounts of sterile saline under pressure, and sutured. Once local anesthesia provided, flexion at the fingers, and wrist are intact. No tendon deficit noted. He will be placed in a splint, as he is having a significant amount of pain with hand movement. Ice. Antibiotics. Orthopedic follow-up. Lab Data Radiology Impressions Wrist X-Ray 07/26/24 18:11 IMPRESSION: Laceration at the palmar aspect of the wrist with a few tiny radiopaque foreign bodies measuring up to 1 mm in size. All radiology interpretation(s) finalized by discharge Discharge Plan Discharge Patient Disposition: Home Clinical Impression: Laceration of skin of left wrist Qualifiers: Encounter type: initial encounter Qualified Code(s): S61.512A - Laceration without foreign body of left wrist, initial encounter Condition: Stable Prescriptions: New cephalexin 500 mg capsule 500 mg PO Q6H 7 Days Qty: 28 0RF hydrocodone-acetaminophen 5-325 mg tablet 1 tab PO Q8H PRN (Reason: pain) Qty: 7 0RF No Action carbamazepine 200 mg Tablet 200 mg PO BID 30 Days Qty: 60 1RF gabapentin 100 mg Capsule 100 mg PO TID 30 Days Qty: 90 1RF bupropion HCl 150 mg Tablet Extended Release 24 Hr 150 mg PO DAILY 30 Days Qty: 30 1RF hydroxyzine pamoate 25 mg capsule 25 mg PO QID Qty: 120 1RF Discharge Orders: Discharge ED (Routine); Ordered 07/26/24 Ordered By: Jeff Mao Referrals: Gustavo Lim DO [Physician] - 4-7 days Patient Instructions: Laceration (ED), Opioid Safety, Pain Management Activity Restrictions/Additional Instructions: Keep clean and dry for 24 hours, then you may wash with soap and running water. No soaking. Antibiotics as directed. Ice for pain and swelling. Stay in your splint for at least 3 days. Call orthopedics on Saturday for a follow-up appointment this week. Sutures should come out in 7 days. Stand Alone Forms: Work/School Release Coding Level of Care Code ED Clinical Medical Assistant for Johnnie Ernst
[2024-07-26] MEDS: tetanus-dipt-pertussis 0.5 mL SDV IM (19:08)
[2024-07-26 19:24] VITALS: O2SAT 95
[2024-07-26] MEDS: cephALEXin 500 mg Capsule PO (20:25)
[2024-07-26 20:31] VITALS: BP 100/82; PULSE 88; O2SAT 95
== END 2024-07-26 20:30 | disposition home or self-care (01) ==
PROVIDERS: Emergency Provider Emergency Medicine
DX: S61.512A Laceration without foreign body of left wrist, initial encounter (principal); X58.XXXA Exposure to other specified factors, initial encounter
CPT/HCPCS: 12002; 29125; 73110; 90471; 90715; 96361; 96374; 96375; 96376; 99284; 99291; J1171; J2405; J7040

== ENCOUNTER 2025-09-14 11:09 | Emergency (ER) | payer BC, MEDICAID, SELFPAY ==
[2025-09-14 11:26] VITALS: BP 150/99; PULSE 94; RESP 18; TEMP 36.7; O2SAT 98; BMI 33.7
--- OUTSIDE RECORDS SUMMARY | 2025-09-14 11:39 | XMS_ITS | Encounter Summary ---
Author Organization [facility] Address [address] [place] [address] Care Team Providers Care Filing And Polishing Supervisor Name Role Phone Unavailable Primary Care Provider Unavailabl e Encounter Details Date Type Department Care Team (Latest Contact Info) Description 10/01/2001 Outpatient Historical [facility] Goodman GONZALEZ, Delvis Forrester MD [address] [place] [address] BACKACHE NOS (Primary Dx) Social History Tobacco Use Types Packs/Day Years Used Date Smoking Tobacco: Never Assessed Sex and Gender Information Value Date Recorded Sex Assigned at Not on file 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
--- OUTSIDE RECORDS SUMMARY | 2025-09-14 11:39 | XMS_ITS | Clinical Summary ---
Author Organization [facility] Address [address] [place] [address] Phone Care Team Providers Care Nut Feeder Name Role Phone Unavailable Primary Care Provider Unavailabl e Allergies No known active allergies Medications naproxen (NAPROSYN) 500 mg Oral tablet Take 500 mg by mouth 2 times daily with meals. Active oxyCODONE-aceta minophen (Percocet) 5-325 mg tabletIndicatio ns:Cellulitis of left finger Take 1 Tablet by mouth every 6 hours as needed for Pain, Moderate. Max Daily Amount: 4 Tablets 2 Tablet 04/11/2020 Active Active Problems Problem Noted Date Diagnosed Date Acute pancreatitis 01/21/2013 Bipolar disorder 01/21/2013 Drug abuse 01/21/2013 Cholelithiasis 01/21/2013 Immunizations Immunization Administration Dates Next Due (M-M-R II/PRIORIX)(12 MO UP) MEASLES, MUMPS AND RUBELLA VIRUS VACCINE, 0.5 ML IM/SUBCUT 05/10/1994,01/15/1991 (TDVAX)(7 YRS UP) TETANUS AN D DIPHTHERIA TOXOIDS, ADSORBED (2 LF OF TETANUS TOXOID AND 2 LF OF DIPHTHERIA TOXOID), 0.5ML (PF), IM 07/17/2004 Dt Dtp Dtap Vaccine 06/28/1994, 1,04/14/1990,1989 HIB, Unspecified Formulation 11/02/1991,08/31/19 91,05/04/1991 Hepatitis B Vaccine 05/26/1996,05/10/1995,1993 IPV/OPV 06/28/1994,05/04/1991,02/17/1990 Family History Medical History Relation Name Comments Healthy Brother 1 Healthy Brother 2 Other Daughter tumor on back Kidney Disease Father Heart Disease Mother Kidney Disease Sister 1 Healthy Sister 2 Relation Name Status Comments Brother 1 Brother 2 Daughter Alive Father Mother Alive Sister 1 Alive Sister 2 Social History Tobacco Use Types Packs/Day Years Used Date Smoking Tobacco: Every Day Cigarettes Tobacco Cessation:Ready to Q uit: No Alcohol Use Standard Drinks/Week Comments Not Currently 0 (1 standard drink = 0.6 oz pur e alcohol) Sex and Gender Information Value Date Recorded Sex Assigned at Not on file 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 Gender Identity Not on file Sexual Orientation Not on file Occupation Industry Job Start Date Job End Date Not on file Not on file Not on file Not on file Last Filed Vital Signs Vital Sign Reading Time Taken Comments Blood Pressure 155/88 04/11/2020 10:12 PM CDT Pulse 70 01/26/2013 7:34 AM CDT Temperature 37.1 C (98.8 F) 04/11/2020 9:26 PM CDT Respiratory Rate 20 04/11/2020 10:1 2 PM CDT Oxygen Saturation 98% 04/11/2020 10: 12 PM CDT Inhaled Oxygen Concentration - - Weight 143.7 kg (316 lb 12.8 oz) 04/11/2020 9:19 PM CDT Height 182.9 cm (6') 01/22/2013 3:07 PM CDT Body Mass Index 42.97 01/22/2013 3:07 PM CDT Plan of Treatment Health Maintenance Due Date Last Done Comments DTAP/TDAP/TD VACCINES (5 - Tdap) 07/18/2004 07/17/2004, 06/28/1994, 05/04/1991, Additional history exists INFLUENZA VACCINE (#1) 2025 HEPATITIS B VACCINES Completed 05/26/1996, 05/10/1995, 06/28/1994 HPV VACCINES (No Doses Required) Completed Advance Directives For more information, please contact: [phone] * Full Code (Latest Code Status on File) Date Activated Date Inactivated Comments 01/25/2013 8:04 AM 01/26/2013 4:03 PM * Full Code Date Activated Date Inactivated Comments 01/21/2013 3:58 AM 01/25/2013 8:04 AM * Full Code Date Activated Date Inactivated Comments 02/09/2009 5:07 PM 02/12/2009 1:30 PM * Full Code Date Activated Date Inactivated Comments 02/09/2009 1:12 PM 02/09/2009 5:07 PM * Full Code Date Activated Date Inactivated Comments 02/09/2009 8:59 AM 02/09/2009 1:12 PM
--- OUTSIDE RECORDS SUMMARY | 2025-09-14 11:39 | XMS_ITS | Encounter Summary ---
Author Organization [facility] Address [address] [place] [address] Care Team Providers Care Dispensary Clerk Name Role Phone Unavailable Primary Care Provider Unavailabl e Encounter Details Date Type Department Care Team (Latest Contact Info) Description 11/18/2001 [facility] [address] [place] [address] Delvis Castorena III, MD [address] [place] [address] BACKACHE NOS (Primary Dx) Social History Tobacco Use Types Packs/Day Years Used Date Smoking Tobacco: Never Assessed Sex and Gender Information Value Date Recorded Sex Assigned at Not on file 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
--- OUTSIDE RECORDS SUMMARY | 2025-09-14 11:39 | XMS_ITS | Encounter Summary ---
Author Organization [facility] Address [address] [place] [address] Care Team Providers Care Personnel Technician Name Role Phone Unavailable Primary Care Provider Unavailabl e Encounter Details Date Type Department Care Team (Late st Contact Info) Description 02/01/[address] 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
--- OUTSIDE RECORDS SUMMARY | 2025-09-14 11:39 | XMS_ITS | Encounter Summary ---
Author Organization [facility] Address [address] [place] [address] Care Team Providers Care Apartment Groundskeeper Name Role Phone Unavailable Primary Care Provider Unavailabl e Encounter Details Date Type Department Care Team (Late st Contact Info) Description 02/01/2009 Ancillary Orders [facility] 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 Findings: Compared with 01/16, a right-sided nephrostomy tube remains in place. Two calculi are projected just inferior to the pigtail portion of the catheter, also present on the prior exam with slight change in position. One of these is likely in the lower pole of the kidney and the other is likely in the region of the ureteropelvic junction. The bowel gas pattern is unremarkable. Residual contrast material in tubular structure in the right pelvis likely represents appendix. Dextrocurvature of the lumbar spine again noted. cgf: - uploaded from [email or web address] - Procedure Note Aquilino Umanzor MD - 02/03/2009 Exam: XR ABDOMEN 1 VW Date/Time of Exam: February 03, 2009 3:13:00 PM History: CALCULUS OF KIDNEY. Findings: Compared with 01/16, a right-sided nephrostomy tube remains inplace. Two calculi are projected just inferior to the pigtail portion of the catheter, also present on theprior exam with slight change in position. One of these is likely in the lower pole of the kidney andthe other is likely in the region of the ureteropelvic junction. The bowel gas pattern is unremarkable.Residual contrast material in tubular structure in the right pelvis likely represents appendix.Dextrocurvature of the lumbar spine again noted. cgf: - uploaded from [email or web address] - us Logan Gardner MD DIAGNOSTIC IMAGING ORDERABL ES Final Result documented in this encounter Visit Diagnoses Diagnosis Calculus of kidney Calculus of kidney documented in this encounter
[2025-09-14 11:40] VITALS: BP 181/98; PULSE 89; O2SAT 98
--- NOTE | 2025-09-14 11:49 | PC.NURSE ---
according to ER criminal records technician pt last filled Gabapentin in March.
--- NOTE | 2025-09-14 12:09 | ED_ITS ---
HPI - Extremity Problem 2 General: Chief complaint: Extremity Problem,Nontraumatic Stated complaint: leg pain Time Seen by Provider: 09/14/25 11:26 History of Present Illness: 35-year-old male presents to the emergen cy room with complaints of bilateral lower extremity pain. He is complaining severe pain in his legs. He has had this for some time. It is difficult for Deras up to answer questions and mumbles frequently. He denies any chest pain or abdominal pain. Associated symptoms: Deny chest pain, fever(s) or rash Related Data Previous Rx's ?Medication ?Instructions ?Recorded bupropion HCl 150 mg 24 hr tablet, 150 mg PO DAILY 30 days #30 tabs 10/28/23 extended release carbamazepine 200 mg tablet 200 mg PO BID 30 days #60 tabs 10/28/23 hydroxyzine pamoate 25 mg capsule 25 mg PO QID #120 ca ps 10/28/23 hydrocodone 5 mg-acetaminophen 325 1 tab PO Q8H PRN pa in #7 tabs 07/26/24 mg tablet prednisone 20 mg tablet 20 mg PO TID #15 tabs pregabalin 75 mg capsule (Lyrica) 75 mg PO BID #60 cap s 09/14/25 Allergies Allergy/AdvReac Type Severity Reaction Status Date / Time No Known Allergies Allergy Verified 07/26/24 17:40 Review of Systems 2 Const: Denies: fever(s) or chills Card: Denies: chest pain Resp: Denies: dyspnea GI: Denies: abdominal pain : Denies: dysuria, urinary frequency or urinary urgency Musc: Denies: neck pain or back pain Skin/Breast: Denies: rash PFSH ED 2 PFSH: Medical History Post traumatic stress disorder (PTSD) Schizoaffective disorder per client report Social History Smoking and tobacco/nicotine status: current every day tobacco/nicotine user cigarettes Packs smoked per day: 0.25 Years cigarettes smoked: 20 Quit status (tobacco/nicotine): has tried quititng Number of times tried to quit tobacco: 5 Second hand smoke exposure: No Physical Exam 2 Const: COMMON NORMALS: no acute distress GENERAL APPEARANCE: cooperative and comfortable ORIENTATION/CONSCIOUSNESS: Yes awake HENMT: COMMON NORMALS: normocephalic, atraumatic and hearing grossly normal bilaterally HEAD & SCALP: normocephalic and atraumatic Resp: COMMON NORMALS: normal respiratory effort, No retractions, No use of accessory muscles and clear to auscultation bilaterally AUSCULTATION: clear to auscultation bilaterally Cardio: COMMON NORMALS: regular rate, regular rhythm and No murmurs present (Cardio) RATE: regular rate RHYTHM: regular rhythm GI: COMMON NORMALS: Soft to palpation and No hepatosplenomegaly present A USCULTATION: Yes normoactive bowel sounds PALPATION: Yes Soft to palpation, No Tenderness to palpation present (GI), No Guarding due to palpation present (GI) and Yes No hepatosplenomegaly present Extremity: COMMON NORMALS: normal to inspection, capillary refill normal, no clubbing, cyanosis or edema, no calf tenderness and no pedal edema Neuro: OTHER: Neurovascular intact. Dorsum plantarflexion 5/5 exam irregular patient complains of severe medial thigh pain with attempts at lifting his leg or with attempts at dorsiflexion but he still is able to maintain strength. Patient is able to ambulate. Skin: COMMON NORMALS: no rashes or lesions noted GENERAL SKIN EXAM: no rashes or lesions noted Course 2 Vital Signs: Vital signs: Vital Signs Temperature 98.1 F 09/14/25 11:26 Pulse Rate 79 09/14/25 13:24 Respiratory Rate 18 09/14/25 11:26 Blood Pressure 144/92 09/14/25 13:24 Pulse Oximetry 94 09/14/25 13:24 Oxygen Delivery Me thod Room Air 09/14/25 13:24 MDM - Extremity (Nontraumatic) Medical Decision Making Exam rather limited but he has no focal neurologic deficits. No red flag symptoms no imaging done at this time. Laboratory test reviewed as found in the chart CBC unremarkable BUN/creatinine electrolytes normal liver functions mildly elevated ALT otherwise unremarkable. Urine drug screen positive for amphetamines and marijuana. We returned to the room to discuss findings the patient he was resting comfortably sleeping no evidence of any pain. Course of discussion reviewed with some positive findings particularly in the urine tox which he stated he was not surprised. Will discharge the patient home I have him change from gabapentin to Lyrica and will place him on a prednisone taper follow-up with orthopedic spine surgery. Lab Data 09/14/25 12:54 09/14/25 12:54 Laboratory Results WBC 7.45 10^3/uL (3.29-11.43) 09/14/25 12:54 Corrected WBC Cancelled 09/14/25 11:49 RBC 4.74 10^6/uL (3.85-5.65) 09/14/25 12:54 Hgb 14.70 g/dL (11.27-16.99) 09/14/25 12:54 Hct 43.9 % (37-53) 09/14/25 12:54 MCV 92.6 fl (82-101) 09/14/25 12:54 MCH 31.0 pg (27-33) 09/14/25 12:54 MCHC 33.5 g/dL (30-55) 09/14/25 12:54 RDW 11.9 % (12.1-15.1) L 09/14/25 12:54 Plt Count 250 10^3/cmm (157-399) 09/14/25 12:54 MPV 9.3 fL (7.4-10.4) 09/14/25 12:54 Gran % Cancelled 09/14/25 11:49 Neut % (Auto) 56.4 % 09/14/25 12:54 Lymph % (Auto) 31.5 % 09/14/25 12:54 Canyon % (Auto) 8.9 % 09/14/25 12:54 Eos % (Auto) 2.3 % 09/14/25 12:54 Baso % (Auto) 0.5 % 09/14/25 12:54 Neut # (Auto) 4.20 10^3/uL (1.8-7.7) 09/14/25 12:54 Lymph # (Auto) 2.4 10^3/uL (0.8-4.8) 09/14/25 12:54 Canyon # (Auto) 0.7 10^3/uL (0.2-0.9) 09/14/25 12:54 Eos # (Auto) 0.2 10^3/uL (0.0-0.8) 09/14/25 12:54 Baso # (Auto) 0.0 10^3/uL (0.0-0.1) 09/14/25 12:54 Absolute Gran (auto) Cancelled 09/14/25 11:49 Nucleated RBC % (auto) 0 % 09/14/25 12:54 Nucleated RBCs # 0.0 /100WBC 09/14/25 12:54 Sodium 139 mmol/L (136-145) 09/14/25 12:54 Potassium 4.8 mmol/L (3.5-5.1) 09/14/25 12:54 Chloride 102 mmol/L (98-107) 09/14/25 12:54 Carbon Dioxide 26 mmol/L (22-29) 09/14/25 12:54 Anion Gap 15.8 (5-19) 09/14/25 12:54 BUN 20 mg/dL (6-20) 09/14/25 12:54 Creatinine 1.1 mg/dL (0.7-1.2) 09/14/25 12:54 GFR Calculation 75.7 mL/min (90-130) L 09/14/25 12:54 Glucose 169 mg/dL (65-115) H 09/14/25 12:54 Calculated Osmolality 295 mOsm/kg (285-295) 09/14/25 12:54 Calcium 9.2 mg/dL (8.5-10.5) 09/14/25 12:54 Magnesium 2.1 mg/dL (1.7-2.3) 09/14/25 12:54 Total Bilirubin 0.4 mg/dL (0.15-1.2) 09/14/25 12:54 AST 30 U/L (0-40) 09/14/25 12:54 ALT 53 U/L (0-41) H 09/14/25 12:54 Alkaline Phosphatase 64 U/L (40-130) 09/14/25 12:54 Total Protein 6.6 g/dL (6.6-8.7) 09/14/25 12:54 Albumin 3.9 g/dL (3.5-5.2) 09/14/25 12:54 Globulin 2.7 g/dL (1.3-4.6) 09/14/25 12:54 Urine Opiates Screen Negative ng/mL (Negative) 09/14/25 12:40 Ur Barbiturates Screen Negative ng/mL (Negative) 09/14/25 12:40 Ur Phencyclidine Scrn Negative ng/mL (Negative) 09/14/25 12:40 Ur Amphetamines Screen Positive ng/mL (Negative) H 09/14/25 12:40 U Benzodiazepines Scrn Negative ng/mL (Negative) 09/14/25 12:40 Urine Cocaine Screen Negative ng/mL (Negative) 09/14/25 12:40 U Marijuana (THC) Screen Positive ng/mL (Negative) H 09/14/25 12:40 No radiology studies performed this visit Discharge Plan Discharge Patient Disposition: Home Clinical Impression: Chronic leg pain Condition: Stable Prescriptions: New pregabalin [Lyrica] 75 mg capsule 75 mg PO BID Qty: 60 0RF prednisone 20 mg tablet 20 mg PO TID Qty: 15 0RF Rx Instructions: 1 p.o. 3 times daily x3 days, 1 p.o. twice daily x2 days, 1 p.o. daily x2 days Discontinued gabapentin 100 mg Capsule 100 mg PO TID 30 Days Qty: 90 1RF No Action carbamazepine 200 mg Tablet 200 mg PO BID 30 Days Qty: 60 1RF bupropion HCl 150 mg Tablet Extended Release 24 Hr 150 mg PO DAILY 30 Days Qty: 30 1RF hydroxyzine pamoate 25 mg capsule 25 mg PO QID Qty: 120 1RF hydrocodone-acetaminophen 5-325 mg tablet 1 tab PO Q8H PRN (Reason: pain) Qty: 7 0RF Discharge Orders: Discharge ED (Routine); Ordered 09/14/25 Ordered By: Javier Waite Discharge Diet: Usual diet Discharge Activity: Increase activity as tolerated Patient Instructions: Opioid Safety, Pain Management, Patient Portal & Zafar Instructions Activity Restrictions/Additional Instructions: Thank you for choosing [facility] for your healthcare needs today. It is very important that you follow up as instructed or that you return to the Emergency Department should you have concerns or if your condition changes or worsens in any way. Emergency department visits are focused on emergent conditions, in some cases you may require further evaluation on an outpatient basis. You are seen the emergency room with the complaint of chronic leg pain. Laboratory tests were unremarkable. Will recommend that you follow-up with the orthopedic spine clinic case management make arrangements for this. Stop the gabapentin will start you on Lyrica 75 mg twice a day and also put you on a prednisone taper. (Please note that included in your discharge packet is information concerning opioid safety and pain management. 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
[2025-09-14] MEDS: orphenadrine 30 mg/mL Inj 2 mL 60 MG IM (12:47)
[2025-09-14 13:06] LABS: PCP Screen Urine Negative (Negative)
[2025-09-14 13:13] LABS: Hematocrit 43.9 % (37-53); Hemoglobin 14.70 g/dL (11.27-16.99); Mean Corpuscular HGB Conc 33.5 g/dL (30-55); Mean Corpuscular Hemoglobin 31.0 pg (27-33); Mean Corpuscular Volume 92.6 fl (82-101); Nucleated Red Blood Cells % 0 %; Platelet Count 250 10^3/cmm (157-399); Red Blood Count 4.74 10^6/uL (3.85-5.65); White Blood Count 7.45 10^3/uL (3.29-11.43)
--- NOTE | 2025-09-14 13:21 | PC.NURSE ---
Assumed Pt. care. PT. not responding wanting to sleep. Pts GF reports bilateral leg cramping for years and has been increased pain last few weeks.
[2025-09-14 13:24] VITALS: BP 144/92; PULSE 79; O2SAT 94
[2025-09-14 13:32] LABS: Alanine Aminotransferase 53 U/L (0-41); Albumin Level 3.9 g/dL (3.5-5.2); Alkaline Phosphatase 64 U/L (40-130); Anion Gap 15.8 (5-19); Aspartate Amino Transferase 30 U/L (0-40); Blood Urea Nitrogen 20 mg/dL (6-20); Calcium 9.2 mg/dL (8.5-10.5); Carbon Dioxide 26 mmol/L (22-29); Chloride 102 mmol/L (98-107); Globulin 2.7 g/dL (1.3-4.6); Glucose 169 mg/dL (65-115); Magnesium 2.1 mg/dL (1.7-2.3); Osmolality Calculated 295 mOsm/kg (285-295); Potassium 4.8 mmol/L (3.5-5.1); Sodium 139 mmol/L (136-145); Total Protein 6.6 g/dL (6.6-8.7)
== END 2025-09-14 13:52 | disposition home or self-care (01) ==
PROVIDERS: Emergency Provider Family Medicine
DX: G89.29 Other chronic pain (principal); M79.604 Pain in right leg; M79.605 Pain in left leg; F17.210 Nicotine dependence, cigarettes, uncomplicated
CPT/HCPCS: 36415; 80053; 80306; 83735; 85025; 96372; 99284; J1100; J1885; J2360